=== PATIENT | male | born 1980 | race Hispanic/Latino ===

== ENCOUNTER 2017-11-02 16:36 | Inpatient (IN) | payer MEDICAID, OTHER, SELFPAY ==
[2017-11-02 16:36] VITALS: BMI 25.8
--- NOTE | 2017-11-02 17:22 | ED PDOC ---
Arrival/HPI - General Chief Complaint: Psychiatric Evaluation Time Seen by Provider: 11/02/17 16:49 Historian: Patient - History of Present Illness Narrative History of Present Illness (Text): 11/02/17 17:18 36yr old male presents today with depression and SI. pt states he started using drugs again and his girlfriend left him. pt states today he considered jumping in front of a train. pt admits to using heroin this morning. pt denies attempting to overdose on any medications. pt denies fever/chills. no cough. no CP or sob. pt denies abdominal pain. pt states he has started cutting himself again. No other complaints. Symptom Onset: Gradual Symptom Course: Worsening Past Medical History - Provider Review Nursing Documentation Reviewed: Yes - Travel History Have you recently traveled outside [place] w/in the past 3 mons?: No - Infectious Disease Hx of Infectious Diseases: None - Tetanus Immunization Tetanus Immunization: Unknown - Cardiac Hx Hypertension: Yes - Pulmonary Hx Asthma: Yes - Neurological Hx Alzheimer's Disease: No Hx Dementia: No Hx Migraine: No Hx Multiple Sclerosis: No Hx Parkinson's Disease: No Hx Seizures: No Hx Transient Ischemic Attacks (TIA): No - HEENT Hx HEENT Disorder: No Hx Cataracts: No Hx Deafness: No Hx Difficulty Chewing: No Hx Epistaxis: No Hx Glaucoma: No Hx Macular Degeneration: No - Renal Hx Renal Disorder: No Hx Kidney Stones: No - Endocrine/Metabolic Hx Hyperthyroidism: No Hx Hypothyroidism: No - Hematological/Oncological Hx Anemia: No Hx Sickle Cell Disease: No - Integumentary Hx Dermatological Disorder: No Hx Basal Cell Carcinoma: No Hx Baxter: No Hx Cellulitis: No Hx Eczema: No Hx Melanoma: No Hx Psoriasis: No Hx Squamous Cell Carcinoma: No - Musculoskeletal/Rheumatological Hx Arthritis: Yes - Gastrointestinal Hx Crohn's Disease: No Hx Diverticulitis: No Hx Gall Bladder Disease: No Hx Gastritis: No Hx Pancreatitis: No - Genitourinary/Gynecological Hx Sexually Transmitted Diseases: No - Psychiatric Hx Anxiety: Yes Hx Depression: Yes Hx Post Traumatic Stress Disorder: Yes Hx Substance Use: Yes - Past Surgical History Past Surgical History: Non-Contributing - Surgical History Hx Appendectomy: No Hx Carotid Endarterectomy: No Hx Cholecystectomy: No Hx Coronary Artery Bypass Graft: No Hx Coronary Stent: No Hx Tonsillectomy: No - Anesthesia Hx Anesthesia: No - Suicidal Assessment Feels Threatened In Home Enviroment: No Family/Social History - Physician Review Nursing Documentation Reviewed: Yes Family/Social History: Unknown Family HX Smoking Status: Heavy Smoker > 10 Cigarettes Daily Hx Alcohol Use: Yes Hx Substance Use: Yes Substance used: will not admit to type of drug Hx Substance Use Treatment: Yes Allergies/Home Meds Allergies/Adverse Reactions: Allergies No Known Allergies Allergy (Verified 12/25/16 02:41) Home Medications: Home Meds Medication Instructions Recorded Confirmed Amphetamine Salt Combination 10 mg PO DAILY 12/25/16 12/25/16 [Adderall] clonazePAM [clonAZEPAM] 1 mg PO TID 12/25/16 12/25/16 Review of Systems - Review of Systems Constitutional: absent: Fatigue, Fevers Respiratory: absent: SOB, Cough Cardiovascular: absent: Chest Pain, Palpitations Gastrointestinal: absent: Abdominal Pain, Nausea, Vomiting Musculoskeletal: absent: Arthralgias, Back Pain, Neck Pain Neurological: absent: Headache, Dizziness Psychiatric: Anxiety, Depression, Suicidal Ideation Physical Exam Vital Signs Reviewed: Yes Vital Signs Temp Pulse Resp BP Pulse Ox 11/02/17 18:30 68 20 117/62 99 11/02/17 16:44 98.6 F 82 16 118/80 99 Temperature: Afebrile Blood Pressure: Normal Pulse: Regular Respiratory Rate: Normal Appearance: Positive for: Well-Appearing, Non-Toxic, Comfortable Pain Distress: None Mental Status: Positive for: Alert and Oriented X 3 - Systems Exam Head: Present: Atraumatic Mouth: Present: Moist Mucous Membranes Respiratory/Chest: Present: Clear to Auscultation Cardiovascular: Present: Regular Rate and Rhythm Abdomen: No: Tenderness, Rebound, Guarding Upper Extremity: Present: Normal ROM Lower Extremity: Present: Normal ROM Neurological: Present: GCS=15 Skin: Present: Warm, Dry, Normal Color Psychiatric: Present: Alert, Oriented x 3 Medical Decision Making ED Course and Treatment: 11/02/17 18:53 Patient is nontoxic well-appearing in no distress vital signs are stable. pt placed on 1:1 for SI. pt became agitated in er; pt given 2mg of ativan IM. CBC WNL CMP WNL Tylenol WNL Salicylate WNL Alcohol level WNL Urine drug screen + opiates, + amphetamines UA; wnl cxr: wnl ekg: Normal sinus rhythm at 76 bpm normal axis no ST elevations normal intervals pt is medically cleared for PES evaluation Patient was seen and evaluated by PES screener pt signed voluntarily to behavioral [facility] floor. Impression; depression, SI Admit to behavioral [facility] floor - Lab Interpretations Lab Results: 11/02/17 17:34 11/02/17 17:34 Lab Results 11/02/17 17:34: Alcohol, Quantitative < 10 11/02/17 17:34: Salicylates < 1 L, Acetaminophen < 10.0 L 11/02/17 17:34: Sodium 143, Potassium 3.6, Chloride 103, Carbon Dioxide 28, Anion Gap 16, BUN 16, Creatinine 0.8, Est GFR ( Amer) > 60, Est GFR (Non- Af Amer) > 60, Random Glucose 110, Calcium 9.2, Total Bilirubin 0.8, AST 51, ALT 86 H, Alkaline Phosphatase 73, Total Protein 7.5, Albumin 4.0, Globulin 3.5 , Albumin/Globulin Ratio 1.1 11/02/17 17:34: WBC 4.5, RBC 4.72, Hgb 13.9 L, Hct 38.6 L, MCV 81.8, MCH 29.4, MCHC 36.0, RDW 13.3, Plt Count 197, MPV 9.0, Gran % 53.4, Lymph % (Auto) 36.1 H , Steele % (Auto) 9.4 H, Eos % (Auto) 0.7 L, Baso % (Auto) 0.4, Gran # 2.40, Lymph # (Auto) 1.6, Steele # (Auto) 0.4, Eos # (Auto) 0.0, Baso # (Auto) 0.02 - RAD Interpretation Radiology Orders: 11/02/17 16:54 CHEST PORTABLE [RAD] Stat - Medication Orders Current Medication Orders: Acetaminophen (Tylenol 325mg Tab) 650 mg PO Q6H PRN PRN Reason: Fever >100.4 F Discontinued Medications Lorazepam (Ativan) 2 mg IM ONCE ONE PRN Reason: Protocol Stop: 11/02/17 17:23 Last Admin: 11/02/17 17:32 Dose: 2 mg IM Administration Charges Document 11/02/17 17:32 DAINA (Rec: 11/02/17 17:32 SZA [id number]) Injection Site MAR Injection Site Left Deltoid Charges for Administration # of IM Administrations 1 Disposition/Present on Arrival - Present on Arrival Any Indicators Present on Arrival: No History of DVT/PE: No History of Uncontrolled Diabetes: No Urinary Catheter: No History of Decub. Ulcer: No History Surgical Site Infection Following: None - Disposition Have Diagnosis and Disposition been Completed?: Yes Diagnosis: Depression, Suicidal ideation Disposition: HOSPITALIZED Disposition Time: 19:00 Patient Plan: Admission Patient Problems: Current Active Problems Problem Status Onset Depression Acute Suicidal ideation Acute Condition: FAIR
--- NOTE | 2017-11-02 17:27 | RAD ---
HISTORY: pes eval COMPARISON: No prior. FINDINGS: LUNGS: No active pulmonary disease. PLEURA: No significant pleural effusion identified, no pneumothorax apparent. CARDIOVASCULAR: Normal. OSSEOUS STRUCTURES: No significant abnormalities. VISUALIZED UPPER ABDOMEN: Normal. OTHER FINDINGS: None. IMPRESSION: No active disease.
[2017-11-02 17:49] LABS: BASO # 0.02 K/mm3 (0.0-2.0); BASO % 0.4 % (0.0-3.0); EOS % 0.7 % (1.5-5.0); GRAN # 2.4 (1.4-6.5); GRAN % 53.4 % (50.0-68.0); HEMOGLOBIN 13.9 g/dL (14.0-18.0); LYMPH # 1.6 (1.2-3.4); LYMPH % 36.1 % (22.0-35.0); MEAN CELL VOLUME 81.8 fl (80.0-105.0); MEAN CORPUSCULAR HEMOGLOBIN 29.4 pg (25.0-35.0); MONO # 0.4 (0.1-0.6); MONO % 9.4 % (1.0-6.0); RBC 4.72 10^6/uL (3.5-6.1); RED CELL DISTRIBUTION WIDTH 13.3 % (11.5-14.5); WHITE BLOOD COUNT 4.5 10^3/ul (4.5-11.0)
[2017-11-02 18:01] LABS: ACETAMINOPHEN < 10.0 ug/ml (10.0-20.0); SALICYLATE < 1 mg/dL (2.0-20.0)
[2017-11-02 18:02] LABS: ALB/GLOB RATIO 1.1 (1.1-1.8); ALT/SGPT 86 U/L (7-56); AST/SGOT 51 U/L (17-59); BLOOD UREA NITROGEN 16 mg/dL (7-21); CALCIUM 9.2 mg/dL (8.4-10.5); GFR AFRICAN-AMERICAN > 60; GFR NON-AFRICAN AMERICAN > 60
[2017-11-02 19:48] LABS: URINE BILIRUBIN NEGATIVE (NEGATIVE); URINE BLOOD NEGATIVE (NEGATIVE); URINE GLUCOSE (UA) NEGATIVE (NEGATIVE); URINE LEUKOCYTE ESTERASE NEGATIVE Leu/uL (NEGATIVE); URINE PROTEIN TRACE mg/dL (<30 mg/dL)
[2017-11-02 19:53] LABS: URINE APPEARANCE CLEAR (CLEAR); URINE COLOR YELLOW (YELLOW)
[2017-11-02 20:00] LABS: URINE EPITHELIAL CELLS 0 - 2 /hpf (0-5); URINE RBC 0 - 2 /hpf (0-2); URINE WBC 0 - 2 /hpf (0-6)
[2017-11-02] MEDS ORDERED: Magnesium Hydroxide Susp 30 ml UD PO PRN (20:20)
[2017-11-02] MEDS ORDERED: Alum-Mag Hydrox-Simethicone Susp (30 mL) PO PRN (20:20)
[2017-11-02 20:21] LABS: BARBITURATES, UR NEGATIVE (NEGATIVE); OPIATES, UR POSITIVE (NEGATIVE); PHENCYCLIDINE, UR NEGATIVE (NEGATIVE)
[2017-11-02 20:56] VITALS: O2SAT 100
--- NOTE | 2017-11-03 05:46 | PCM.BM ---
<Anupam Witt - Last Filed: 11/03/17 05:44> Treatment Plan Problems - Problems identified on initial assessmt suicidal ideation Date Initiated: 11/01/17 Time Initiated: 21:45 Assessment reference: NA Status: Active Substance abuse Date Initiated: 11/02/17 Time Initiated: 22:45 Assessment reference: NA Status: Active Treatment assets and liabiliti Patient Assests: ADL independent, good past tx response, good interpersonal skills Patient Liabilities: financial problems, poor support system, relationship conflicts, substance abuse, legal issue - Milieu Protocol Maintain good personal hygiene: daily Encourage regular showers, daily Remind patient to perform daily oral care, daily Assist patient to perform ADL's Conduct patient checks and document Observation sheet: Q15 minutes Maintain personal safety: daily Educate patient to report safety concerns to staff, daily Monitor environment for contraband/sharps Medication safety: Monitor for expected outcome, potential side effects: daily, Assess barriers to learning: daily, Assess readiness for medication education: daily Family Contact Family involvement: Patient does not wish Family/SO involvement Family contact: Patient declines to allow family contact at present Discharge/Continuing Care - Education Needs Education Needs: Patient Medication, Patient Diagnosis/Disease Process, Patient Coping Skills - Discharge Discharge Criteria: Tolerates medication w/o severe side effects, Free of Suicidal thoughts <Yanelis So - Last Filed: 11/03/17 13:28> Family Contact - Goals for Treatment Patient goals for treatment: Unknown, patient refused to participate in Treatment Team Meeting. <Deedee Concepcion - Last Filed: 11/03/17 15:03> - Diagnosis (1) Polysubstance abuse Status: Acute Interventions: 11/03/17 15:04 Monitoring withdrawal symptoms Medical detoxification Pharmacotherapy for alcohol/benzos/opioid dependence Maintaining sobriety Relapse prevention Possible rehabilitation Motivational interviewing 12-step programs: AA meetings (2) Depression Status: Acute Interventions: 11/03/17 15:09 Psychoeducation Psychopharmacology/adjustment of medications as needed/ monitoring possible side effects Evaluate pt on daily basis Compliance with medications and follow up appointments Suicide and homicide risk assessment and prevention Relapse prevention Reduction of symptoms Improve functional status Family involvement As outpatient: cognitive behavioral therapy <Odette Negrete - Last Filed: 11/03/17 15:18>
[2017-11-03 08:07] LABS: GLUCOSE,FASTING 86 mg/dL (65-110); HDL CHOLESTEROL 33 mg/dL (29-60)
[2017-11-03 08:22] LABS: LDL CHOLESTEROL 126 mg/dL (0-129)
[2017-11-03 11:20] LABS: BENZODIAZEPINES, UR POSITIVE (NEGATIVE)
--- NOTE | 2017-11-03 14:59 | PCM.PSYCH ---
Initial Psychiatric Evaluation - Initial Psychiatric Evaluation Type of Admission: Voluntary Legal Status: Capacity (pt has a capacity to sign consent for treatment) Chief Complaint (in patient's own words): "I don't feel well" Patient's Reaction to Hospitalization: pt was admitted for evaluation of depression/possible suicidal ideation History of Present Illness and Precipitating Events: shortly pt is 36yo male with reported h/o polysubstance abuse and dependence, h/ o multiple detoxes, h/o psych admissions, most recent was at [facility] in 2016, pt brought himself to the hospital for evaluation of depressive symptoms, possible suicidal ideation with the plan to jump in front of the train, in context of constant use drugs, social stress such losing his job and recent brake up with his girlfriend. pt reported that he had a plan to jump in front of the train, pt requires further evaluation and stabilization, observation. pt was seen in his room, pt presented to be drowsy, refused to participate in treatment team meeting, acceptable ADLs, poor hygiene. pt seems to be disengaged, talking with his eyes closed, pt said he was using about 15bags of heroin a day IV, and at this moment he is withdrawing. pt said he is not using anything else, but as per labs, UDS was positive for benzos, stimulants. pt is poor and unreliable historian, did not want to participate in interview. as per report pt was depressed after his girlfriend left him and he lost his job. long h/o opioid addiction for 20years. as per report pt has h/o using alcohol, benzos, stimulants. pt has some fresh cuts on his forearm, aproximately 25-30, on the dorsal aspect , pt said that he did not try to kill self, but wanted to harm self. pt said he had no h/o admissions to the psych unit, but as per record pt was admitted to psych unit and detox units in 2016 and 2014. pt denies any medical issues, but pt is bradycardic, low blood pressure. Family h/o: unknown Social h/o: see above. pt smokes about a pack a day, pt was not receptive to education, nicotine patch provided. pt denied v/at/ hallucinations, denied paranoid ideation. as per previous record pt was agitated and aggressive in [facility] in 2017, punched the wall, was d/c AMA. 11/02/17 17:34 11/02/17 17:34 Lab Results 11/03/17 07:00: TSH 3rd Generation 0.68 11/03/17 07:00: Fasting Glucose 86, Triglycerides 180 H, Cholesterol 206 H, LDL Cholesterol Direct 126, HDL Cholesterol 33 11/02/17 19:35: Urine Opiates Screen Positive H, Urine Methadone Screen Negative , Ur Barbiturates Screen Negative, Ur Phencyclidine Scrn Negative, Ur Amphetamines Screen Positive H, U Benzodiazepines Scrn Positive, U Oth Cocaine Metabols Negative, U Cannabinoids Screen Negative 11/02/17 19:35: Urine Color Yellow, Urine Appearance Clear, Urine pH 6.0, Ur Specific Sprague >= 1.030, Urine Protein Trace H, Urine Glucose (UA) Negative, Urine Ketones Trace H, Urine Blood Negative, Urine Nitrate Negative, Urine Bilirubin Negative, Urine Urobilinogen 1.0 H, Ur Leukocyte Esterase Negative, Urine RBC 0 - 2, Urine WBC 0 - 2, Ur Epithelial Cells 0 - 2 11/02/17 17:34: Alcohol, Quantitative < 10 11/02/17 17:34: Salicylates < 1 L, Acetaminophen < 10.0 L 11/02/17 17:34: Sodium 143, Potassium 3.6, Chloride 103, Carbon Dioxide 28, Anion Gap 16, BUN 16, Creatinine 0.8, Est GFR ( Amer) > 60, Est GFR (Non- Af Amer) > 60, Random Glucose 110, Calcium 9.2, Total Bilirubin 0.8, AST 51, ALT 86 H, Alkaline Phosphatase 73, Total Protein 7.5, Albumin 4.0, Globulin 3.5 , Albumin/Globulin Ratio 1.1 11/02/17 17:34: WBC 4.5, RBC 4.72, Hgb 13.9 L, Hct 38.6 L, MCV 81.8, MCH 29.4, MCHC 36.0, RDW 13.3, Plt Count 197, MPV 9.0, Gran % 53.4, Lymph % (Auto) 36.1 H , Thomas % (Auto) 9.4 H, Eos % (Auto) 0.7 L, Baso % (Auto) 0.4, Gran # 2.40, Lymph # (Auto) 1.6, Thomas # (Auto) 0.4, Eos # (Auto) 0.0, Baso # (Auto) 0.02 Vital Signs Temp Pulse Resp BP Pulse Ox 11/03/17 13:45 97.6 F 49 L 17 109/69 11/03/17 10:45 97.5 F L 60 18 109/60 11/03/17 09:45 -97.5 F L 60 18 100/60 11/03/17 09:15 97.6 F 53 L 16 95/55 L 11/02/17 22:31 19 11/02/17 20:54 98.2 F 62 18 112/61 100 11/02/17 18:30 68 20 117/62 99 11/02/17 16:44 98.6 F 82 16 118/80 99 Current Medications: Active Medications Generic Name Dose Route Start Last Admin Trade Name Freq PRN Reason Stop Dose Admin Acetaminophen 650 mg 11/02/17 20:20 Tylenol 325mg Tab PO Q6H PRN Fever >100.4 F Al Hydrox/Mg Hydrox/Simethicone 30 ml 11/02/17 20:20 Maalox Plus 30 Ml PO DAILY PRN Dyspepsia Clonidine HCl 0.1 mg 11/02/17 20:21 Catapres PO Q12 PRN withdrawal Lorazepam 1 mg 11/03/17 08:00 11/03/17 09:35 Ativan PO 1 mg TID NAYELI Administration Protocol Magnesium Hydroxide 30 ml 11/02/17 20:20 Milk Of Magnesia PO DAILY PRN Constipation Quetiapine Fumarate 50 mg 11/02/17 22:00 11/02/17 21:32 Seroquel PO 50 mg HS NAYELI Administration Protocol Quetiapine Fumarate 25 mg 11/03/17 08:00 Seroquel PO DAILY NAYELI Protocol Past Psychiatric History - Past Psychiatric History Previous Treatment History: Inpatient Prior Professional Help: see HPI Prior Psychiatric Treatment: see HPI At what hospital: see HPI Duration: see HPI Nature of Treatment: see HPI Explanation of prior treatment: see HPI History of Abuse: see HPI History of ETOH/Drug Use: see HPI History of Family Illness: see HPI Pertinent Medical Hx (Current Medical&Sleep Prob, Allergies): Allergies Allergy/AdvReac Type Severity Reaction Status Date / Time No Known Allergies Allergy Verified 11/03/17 00:08 Amphetamine Salt Combination [Adderall] 10 mg PO DAILY 12/25/16 clonazePAM [clonAZEPAM] 1 mg PO TID 12/25/16 Review of Systems - Review of Systems Systems not reviewed;Unavailable: Acuity of Condition - EENT Eyes: As Per HPI Ears: As Per HPI Nose/Mouth/Throat: As Per HPI - Cardiovascular Cardiovascular: As Per HPI - Respiratory Respiratory: As Per HPI - Gastrointestinal Gastrointestinal: As Per HPI - Genitourinary Genitourinary: As Per HPI - Reproductive: Male Reproductive:Male: As Per HPI - Musculoskeletal Musculoskeletal: As Par HPI - Integumentary Integumentary: As Per HPI - Neurological Neurological: As Per HPI - Psychiatric Psychiatric: As Per HPI - Endocrine Endocrine: As Per HPI - Hematologic/Lymphatic Hematologic: As Per HPI Mental Status Examination - Personal Presentation Personal Presentation: Looks stated age - Affect Affect: Flat - Motor Activity Motor Activity: Psychomotor Retardation - Reliability in Providing Information Reliability in Providing Information: Poor, due to alteration in thoughts, Poor , due to altered mood, Poor, due to cognitve impairment, Other (seems to be high on drugs) - Speech Speech: Disorganized - Mood Mood: Depressed, Anxious - Formal Thought Process Formal Thought Process: No Impairment - Obsessions/Compulsions Obsessions: None Compulsions: None - Cognitive Functions Orientation: Person, Place Sensorium: Drowsy Attention/Concentration: Easily distracted Estimate of Intelligence: Average Judgement: Intact, as evidence by: Insight regarding need for hospitalization - Risk Risk: Withdrawal, Self-mutilation, Diminished functioning - Strength & Assets Inventory Strength & Assets Inventory: Cooperative - Limitations Limitations: Living alone, Other (multiple social stressors and polysubstance abuse for years) DSM 5 DX - DSM 5 DSM 5 Diagnosis: r/o MDD r/o substance induced mood disorder polysubstance dependence adjustment disorder with depressed and anxious mood - Recommended/Plan of Treatment Treatment Recommendations and Plan of Treatment: Milieu/structure/supportive therapy Medical consult will be called for withdrawals will start symptomatic treatment for opioid withdrawals librium 25mg po tid scheduled for benzos withdrawals seroquel started by psychiatrist environmental permitting specialist remeron 15mg po hs for depression and insomnia neurontin tramadol PRN meds multivitamies SW consultation for discharge plan and social issues Med management Family involvement Follow up on labs Will monitor closely Pt was educated about risk/benefits and alternatives of medications, coping strategies (safety plan, suicide prevention), relapse prevention, importance of follow up with psychiatrist and therapist, stay away from drugs/alcohol/smoking Projected ELOS: 7days Prognosis: guarded Discharge Plan and Discharge Criteria: Pt will be not depressed or manic, will be more hopeful, will be not psychotic or anxious, will be not having thoughts of harming self or others, will be tolerating medications well, will not have major side effects, will be able to function, will not pose threat to self or others. - Smoking Cessation Smoking Cessation Initiated: Yes
--- NOTE | 2017-11-03 18:01 | CARD ---
APPROVED REPORT EKG Measurement Heart [id number] <Conclusion> Poor data quality, interpretation may be adversely affected Normal sinus rhythm Inferior infarct, age undetermined Abnormal ECG
--- NOTE | 2017-11-04 08:06 | CARD ---
APPROVED REPORT EKG Measurement Heart [id number] <Conclusion> Marked sinus bradycardia Inferior infarct, age undetermined Abnormal ECG
[2017-11-04 08:44] LABS: FREE T4 1.16 ng/dL (0.78-2.19)
--- NOTE | 2017-11-04 08:51 | CP.PCM.CON ---
<Tish Mistry - Last Filed: 11/04/17 13:56> History of Present Illness - History of Present Illness History of Present Illness: IM consult note for Dr. Nathaniel Mistry, PGY-1 Pt S & E at bedside at 0720 36M w/PMH sig for depression, arthritis, anxiety, Hep C consulted for bradycardia in setting of opiate abuse. Pt reports he is currently going through withdrawal symptoms- last heroin use 2 days ago. Admits to rhinorrhea, insomnia, agitation, diffuse body aches, sweating, nausea, emesis x 1 (nb, bilious), constipation, chills, headache, dizziness, vision changes, sore throat , weakness, palpitations. Denies numbness & tingling of extremities, changes in urinary habits. UDS positive for opiates & amphetamins, EKG w/marked sinus sarah. RPR neg. Free T4 WNL. PMH: Depression, SI, arthritis, anxiety, Hep C PSH: Denies All: NKDA SH: Admits to tobacco use - 1ppd x 20 yrs, denies ETOH use, admits to heroin and xanax abuse FH: HTN PMD: Denies Review of Systems - Review of Systems All systems: reviewed and no additional remarkable complaints except - Constitutional Constitutional: Anorexia, Chills, Excessive Sweating, Fever, Headache, Lethargy , Weakness. absent: Increased Appetite - EENT Eyes: Blurred Vision Ears: Dizziness Nose/Mouth/Throat: Nasal Discharge, Sore Throat - Cardiovascular Cardiovascular: Chest Pain, Palpitations. absent: Leg Edema - Respiratory Respiratory: absent: Cough - Gastrointestinal Gastrointestinal: Change in Stool Character, Constipation, Nausea, Vomiting. absent: Abdominal Pain, Diarrhea, Hematemesis, Hematochezia - Genitourinary Genitourinary: absent: Change in Urinary Stream, Dysuria - Musculoskeletal Musculoskeletal: Muscle Weakness. absent: Numbness, Tingling - Integumentary Integumentary: absent: New Lesions - Neurological Neurological: Dizziness - Psychiatric Psychiatric: Change in Appetite, Depression, Hopelessness, Suicidal Ideation - Endocrine Endocrine: Excessive Sweating Past Patient History - Infectious Disease Hx of Infectious Diseases: None - Tetanus Immunizations Tetanus Immunization: Unknown - Past Medical History & Family History Past Medical History?: Yes - Past Social History Smoking Status: Heavy Smoker > 10 Cigarettes Daily - CARDIAC Hx Hypertension: Yes - PULMONARY Hx Asthma: Yes - NEUROLOGICAL Hx Alzheimer's Disease: No Hx Dementia: No Hx Migraine: No Hx Multiple Sclerosis: No Hx Parkinson's Disease: No Hx Seizures: No Hx Transient Ischemic Attacks (TIA): No - HEENT Hx HEENT Problems: No Hx Cataracts: No Hx Deafness: No Hx Difficulty Chewing: No Hx Epistaxis: No Hx Glaucoma: No Hx Macular Degeneration: No - RENAL Hx Chronic Kidney Disease: No Hx Kidney Stones: No - ENDOCRINE/METABOLIC Hx Hyperthyroidism: No Hx Hypothyroidism: No - HEMATOLOGICAL/ONCOLOGICAL Hx Anemia: No Hx Sickle Cell Disease: No - INTEGUMENTARY Hx Dermatological Problems: No Hx Basil Cell: No Hx Baxter: No Hx Cellulitis: No Hx Eczema: No Hx Melanoma: No Hx Psoriasis: No Hx Squamous Cell: No - MUSCULOSKELETAL/RHEUMATOLOGICAL Hx Arthritis: Yes - GASTROINTESTINAL Hx Crohn's Disease: No Hx Diverticulitis: No Hx Gall Bladder Disease: No Hx Gastritis: No Hx Pancreatitis: No - GENITOURINARY/GYNECOLOGICAL Hx Sexually Transmitted Disorders: No - PSYCHIATRIC Hx Substance Use: Yes - SURGICAL HISTORY Hx Appendectomy: No Hx Carotid Endarterectomy: No Hx Cholecystectomy: No Hx Coronary Artery Bypass Graft: No Hx Coronary Stent: No Hx Tonsillectomy: No - ANESTHESIA Hx Anesthesia: No Meds Allergies/Adverse Reactions: Allergies Allergy/AdvReac Type Severity Reaction Status Date / Time No Known Allergies Allergy Verified 11/03/17 00:08 - Medications Medications: Current Medications Acetaminophen (Tylenol 325mg Tab) 650 mg PO Q6H PRN PRN Reason: Fever >100.4 F Al Hydrox/Mg Hydrox/Simethicone (Maalox Plus 30 Ml) 30 ml PO DAILY PRN PRN Reason: Dyspepsia Chlordiazepoxide (Librium) 25 mg PO Q8 NAYELI PRN Reason: Protocol Last Admin: 11/04/17 06:08 Dose: Not Given Clonidine HCl (Catapres) 0.1 mg PO Q12 PRN PRN Reason: withdrawal Gabapentin (Neurontin) 300 mg PO TID NAYELI PRN Reason: Protocol Last Admin: 11/03/17 18:11 Dose: 300 mg Lorazepam (Ativan) 2 mg PO QID PRN; Protocol PRN Reason: anxiety/agitation Last Admin: 11/04/17 06:08 Dose: 2 mg Magnesium Hydroxide (Milk Of Magnesia) 30 ml PO DAILY PRN PRN Reason: Constipation Mirtazapine (Remeron) 15 mg PO HS [facility] Last Admin: 11/03/17 21:40 Dose: 15 mg Multivitamins/Minerals (Therapeutic-M Tab) 1 tab PO 0800 [facility] Nicotine (Nicoderm Cq) 1 patch TD DAILY [facility] Ondansetron HCl (Zofran Odt) 4 mg PO Q8H PRN PRN Reason: Nausea/Vomiting Last Admin: 11/03/17 12:26 Dose: 4 mg Quetiapine Fumarate (Seroquel) 50 mg PO HS [facility] PRN Reason: Protocol Last Admin: 11/03/17 21:40 Dose: 50 mg Quetiapine Fumarate (Seroquel) 25 mg PO DAILY [facility] PRN Reason: Protocol Last Admin: 11/03/17 11:30 Dose: Not Given Tramadol HCl (Ultram) 50 mg PO TID [facility] Last Admin: 11/03/17 18:11 Dose: 50 mg Ziprasidone (Geodon Cap) 20 mg PO Q6H PRN; Protocol PRN Reason: agitation/aggression Physical Exam - Constitutional Appears: Non-toxic, No Acute Distress - Head Exam Head Exam: ATRAUMATIC, NORMAL INSPECTION, NORMOCEPHALIC - Eye Exam Eye Exam: EOMI, Normal appearance - ENT Exam ENT Exam: Mucous Membranes Moist, Normal Exam - Neck Exam Neck exam: Positive for: Full Rom, Normal Inspection - Respiratory Exam Respiratory Exam: Clear to Auscultation Bilateral, NORMAL BREATHING PATTERN. absent: Wheezes, Respiratory Distress - Cardiovascular Exam Cardiovascular Exam: REGULAR RHYTHM, +S1, +S2 - GI/Abdominal Exam GI & Abdominal Exam: Hyperactive Bowel Sounds, Soft. absent: Distended, Firm, Guarding, Tenderness - Extremities Exam Extremities exam: Positive for: normal inspection. Negative for: pedal edema - Back Exam Back exam: NORMAL INSPECTION. absent: CVA tenderness (L), CVA tenderness (R) - Neurological Exam Neurological exam: Alert, CN II-XII Intact, Oriented x3 - Psychiatric Exam Psychiatric exam: Normal Affect, Normal Mood - Skin Skin Exam: Dry, Intact, Normal Color, Warm Additional comments: multiple tattoos over upper body Results - Vital Signs Recent Vital Signs: Last Vital Signs Temp 97.9 F 11/04/17 06:56 Pulse 51 L 11/04/17 06:56 Resp 22 11/04/17 06:56 BP 100/51 L 11/04/17 06:56 Pulse Ox 100 11/03/17 23:30 - Labs Result Diagrams: 11/02/17 17:34 11/02/17 17:34 Labs: Laboratory Results - last 24 hr 11/02/17 11/03/17 11/03/17 19:35 07:00 07:00 Free T4 TSH 3rd Generation 0.68 U Benzodiazepines Scrn Positive RPR Nonreactive 11/03/17 11/04/17 19:00 08:00 Free T4 1.16 TSH 3rd Generation 0.24 L U Benzodiazepines Scrn RPR Assessment & Plan - Assessment and Plan (Free Text) Assessment: 36M w/PMH sig for SI, depression consulted for bradycardia in setting of opiate abuse Plan: Bradycardia in 40's EKG w/sinus bradycardia w/inferior infarct of indet age- seen on previous EKGs FU echo FT4 1.16- WNL TSH 0.16 from 0.24- low Cards consulted Constipation On MagOx Miralax PRN Colace Monitor Hep C in setting of IVDU FU HIV RPR neg Encouraged to follow up outpatient for Hep C upon discharge Tobacco abuse Already on Nicotine patch Substance abuse as per psych Librium Ativan Seroquel Geodon Remeron Clonidine Zofran Monitor GI/DVT ppx Ambulate Will follow DW attending Fidelia, PGY-1 - Date & Time Date: 11/04/17 Time: 07:20 <Monse Yee - Last Filed: 11/04/17 15:05> Meds - Medications Medications: Current Medications Acetaminophen (Tylenol 325mg Tab) 650 mg PO Q6H PRN PRN Reason: Fever >100.4 F Al Hydrox/Mg Hydrox/Simethicone (Maalox Plus 30 Ml) 30 ml PO DAILY PRN PRN Reason: Dyspepsia Clonidine HCl (Catapres) 0.1 mg PO Q12 PRN PRN Reason: withdrawal Gabapentin (Neurontin) 300 mg PO TID NAYELI PRN Reason: Protocol Last Admin: 11/04/17 14:37 Dose: Not Given Lorazepam (Ativan) 2 mg PO QID PRN; Protocol PRN Reason: anxiety/agitation Last Admin: 11/04/17 06:08 Dose: 2 mg Lorazepam (Ativan) 3 mg PO QID NAYELI PRN Reason: Protocol Last Admin: 11/04/17 14:36 Dose: Not Given Magnesium Hydroxide (Milk Of Magnesia) 30 ml PO DAILY PRN PRN Reason: Constipation Mirtazapine (Remeron) 15 mg PO HS [facility] Last Admin: 11/03/17 21:40 Dose: 15 mg Multivitamins/Minerals (Therapeutic-M Tab) 1 tab PO 0800 [facility] Last Admin: 11/04/17 09:36 Dose: 1 tab Nicotine (Nicoderm Cq) 1 patch TD DAILY [facility] Last Admin: 11/04/17 09:36 Dose: 1 patch Ondansetron HCl (Zofran Odt) 4 mg PO Q8H PRN PRN Reason: Nausea/Vomiting Last Admin: 11/03/17 12:26 Dose: 4 mg Polyethylene Glycol (Miralax) 17 gm PO DAILY PRN PRN Reason: Constipation Quetiapine Fumarate (Seroquel) 50 mg PO HS [facility] PRN Reason: Protocol Last Admin: 11/03/17 21:40 Dose: 50 mg Quetiapine Fumarate (Seroquel) 25 mg PO DAILY [facility] PRN Reason: Protocol Last Admin: 11/04/17 09:35 Dose: 25 mg Tramadol HCl (Ultram) 50 mg PO TID [facility] Last Admin: 11/04/17 14:37 Dose: Not Given Ziprasidone (Geodon Cap) 20 mg PO Q6H PRN; Protocol PRN Reason: agitation/aggression Results - Vital Signs Recent Vital Signs: Last Vital Signs Temp 97.9 F 11/04/17 06:56 Pulse 51 L 11/04/17 06:56 Resp 22 11/04/17 06:56 BP 100/51 L 11/04/17 06:56 Pulse Ox 100 11/03/17 23:30 - Labs Result Diagrams: 11/02/17 17:34 11/02/17 17:34 Labs: Laboratory Results - last 24 hr 11/03/17 11/03/17 11/04/17 07:00 19:00 08:00 Free T4 1.16 TSH 3rd Generation 0.24 L 0.16 L RPR Nonreactive Attending/Attestation - Attestation I have personally seen and examined this patient.: Yes I have fully participated in the care of the patient.: Yes I have reviewed all pertinent clinical information: Yes Notes (Text): I have seen and examined the patient at bedside. Agree with the above note with the following additions/ exceptions: Briefly this is 36 year old male with history of depression, arthritis, anxiety, known and untreated HepC, tobacco use , IVDA heroin use, benzodiazepines over use who was admitted to psych unit for depression, suicidal ideation and is going thru alcohol withdrawal syndrome. We were consulted for bradycardia. Patient does not have chest pain, sob, dizziness or any other complaints. Will order TSH and echocardiogram. Will consult cardio. Patient is on geodon which can cause bradycardia. Avoid beta blockers, clonidine, amiodarone and non dihyropyridine CCB. Patient is hemodynamically stable at this time. He had bradycardia in past admissions as well. Will continue to follow this patient.
[2017-11-04] MEDS: Multivitamin With Minerals Tab PO SCH (09:36)
[2017-11-04] MEDS ORDERED: POLYETHYLENE GLYCOL 3350 17 GM/Dose PACKET PO PRN (10:25)
--- NOTE | 2017-11-04 12:54 | CARD ---
APPROVED REPORT EXAM: Two-dimensional and M-mode echocardiogram with Doppler and color Doppler. INDICATION LVFX 2D DIMENSIONS Left Atrium (2D)3.9 (1.6-4.0cm)IVSd1.0 (0.7-1.1cm) LVDd5.3 (3.9-5.9cm)PWd1.1 (0.7-1.1cm) LVDs3.9 (2.5-4.0cm)FS (%) 26.2 % LVEF (%)51.1 (>50%) M-Mode DIMENSIONS Aortic Root3.30 (2.2-3.7cm)Aortic Cusp Exc.1.90 (1.5-2.0cm) Aortic Valve AoV Peak Htaqopgk580.0cm/Nimesh Peak GR.9mmHg Mitral Valve MV E Frjzfpvl68.7cm/sMV A Nnlkpoew33.1cm/sE/A ratio0.9 TDI Lateral E' Peak V11.90cm/sMedial E' Peak V7.51cm/sE/Lateral E'5.4 E/Medial E'8.6 Pulmonary Valve PV Peak Qkwgdcry34.4cm/sPV Peak Grad.3mmHg Tricuspid Valve TR Peak Qogwjisq929sd/sRAP [id number] Peak Gr.11mmHg [id number] LEFT VENTRICLE The left ventricle is normal size. There is normal left ventricular wall thickness. The left ventricular function is normal. The left ventricular ejection fraction is within the normal range. There is normal LV segmental wall motion. Transmitral Doppler flow pattern is Grade III-reversible restrictive diastolic dysfunction. No left ventricle thrombus noted on this study. There is no ventricular septal defect visualized. There is no left ventricular aneurysm. There is no mass noted in the left ventricle. RIGHT VENTRICLE The right ventricle is normal size. There is normal right ventricular wall thickness. The right ventricular systolic function is normal. ATRIA The left atrium size is normal. The right atrium size is normal. The interatrial septum is intact with no evidence for an atrial septal defect. AORTIC VALVE The aortic valve is normal in structure. No aortic regurgitation is present. There is no aortic valvular stenosis. There is no aortic valvular vegetation. GREAT VESSELS The aortic root is normal in size. The ascending aorta is normal in size. The pulmonary artery is normal. The IVC is normal in size and collapses >50% with inspiration. PERICARDIAL EFFUSION There is no pleural effusion. There is no pericardial effusion. <Conclusion> Normal chambers Sizes.EF-55% Trace TR, RVSP-21 mmof hg. No vegetation /thrombus/ PE noted.
--- NOTE | 2017-11-04 16:32 | PCM.PYCHPN ---
Psychiatric Progress Note - Psychiatric Progress Note Patient seen today, length of contact: 30 minutes Patient Chief Complaint: "I cannot take Librium because it will damage my liver, I already have hepatitis C." Problems Identified/Issues Discussed: Suicide/ homicide prevention, past psychiatric h/o, current psychiatric symptoms , medical problems, risk/benefits and alternatives of medications, medications compliance, coping strategies, substance abuse h/o, relapse prevention, importance of follow up with psychiatrist and therapist, discharge plan. Medical Problems: as per patient he has hepatitis C, bradycardia, polysubstance abuse and dependence, opioid withdrawals under control, benzodiazepines with rules under control Diagnostic Results: 11/02/17 17:34 11/02/17 17:34 Lab Results 11/04/17 08:00: Free T4 1.16, TSH 3rd Generation 0.16 L 11/03/17 19:00: TSH 3rd Generation 0.24 L 11/03/17 07:00: RPR Nonreactive 11/03/17 07:00: TSH 3rd Generation 0.68 11/03/17 07:00: Fasting Glucose 86, Triglycerides 180 H, Cholesterol 206 H, LDL Cholesterol Direct 126, HDL Cholesterol 33 11/02/17 19:35: Urine Opiates Screen Positive H, Urine Methadone Screen Negative , Ur Barbiturates Screen Negative, Ur Phencyclidine Scrn Negative, Ur Amphetamines Screen Positive H, U Benzodiazepines Scrn Positive, U Oth Cocaine Metabols Negative, U Cannabinoids Screen Negative 11/02/17 19:35: Urine Color Yellow, Urine Appearance Clear, Urine pH 6.0, Ur Specific Echo >= 1.030, Urine Protein Trace H, Urine Glucose (UA) Negative, Urine Ketones Trace H, Urine Blood Negative, Urine Nitrate Negative, Urine Bilirubin Negative, Urine Urobilinogen 1.0 H, Ur Leukocyte Esterase Negative, Urine RBC 0 - 2, Urine WBC 0 - 2, Ur Epithelial Cells 0 - 2 11/02/17 17:34: Alcohol, Quantitative < 10 11/02/17 17:34: Salicylates < 1 L, Acetaminophen < 10.0 L 11/02/17 17:34: Sodium 143, Potassium 3.6, Chloride 103, Carbon Dioxide 28, Anion Gap 16, BUN 16, Creatinine 0.8, Est GFR ( Amer) > 60, Est GFR (Non- Af Amer) > 60, Random Glucose 110, Calcium 9.2, Total Bilirubin 0.8, AST 51, ALT 86 H, Alkaline Phosphatase 73, Total Protein 7.5, Albumin 4.0, Globulin 3.5 , Albumin/Globulin Ratio 1.1 11/02/17 17:34: WBC 4.5, RBC 4.72, Hgb 13.9 L, Hct 38.6 L, MCV 81.8, MCH 29.4, MCHC 36.0, RDW 13.3, Plt Count 197, MPV 9.0, Gran % 53.4, Lymph % (Auto) 36.1 H , [place] % (Auto) 9.4 H, Eos % (Auto) 0.7 L, Baso % (Auto) 0.4, Gran # 2.40, Lymph # (Auto) 1.6, [place] # (Auto) 0.4, Eos # (Auto) 0.0, Baso # (Auto) 0.02 Vital Signs Temp Pulse Resp BP Pulse Ox 11/04/17 06:56 97.9 F 51 L 22 100/51 L 11/03/17 23:30 61 20 127/75 100 11/03/17 21:40 98.7 F 46 L 20 96/56 L 100 11/03/17 16:00 46 L 106/63 11/03/17 13:45 97.6 F 49 L 17 109/69 11/03/17 10:45 97.5 F L 60 18 109/60 11/03/17 09:45 -97.5 F L 60 18 100/60 11/03/17 09:15 97.6 F 53 L 16 95/55 L 11/02/17 22:31 19 11/02/17 20:54 98.2 F 62 18 112/61 100 11/02/17 18:30 68 20 117/62 99 11/02/17 16:44 98.6 F 82 16 118/80 99 DSM 5 Symptoms Update: shortly pt is 36yo male with reported h/o polysubstance abuse and dependence, h/ o multiple detoxes, h/o psych admissions, most recent was at [facility] in 2016, pt brought himself to the hospital for evaluation of depressive symptoms, possible suicidal ideation with the plan to jump in front of the train, in context of constant use drugs, social stress such losing his job and recent brake up with his girlfriend. pt reported that he had a plan to jump in front of the train, pt requires further evaluation and stabilization, observation. pt was seen next to the nursing station, poor hygiene, pt is sweating, yawning. as per staff patient was able tohydrate himself, was refusing food majority of the times. Patient is self isolative, not participating in unit activities, refused to have echocardiogram but after education patient was willing to have this test for bradycardia. Patient refused to have Librium because patient said that he has hepatitis C and he is afraid that his liver will be damaged by that, this statement gave this production underwriter optimism that patient is not suicidal. patient appears to be depressed, irritable, annoyed. So far no behavioral incidents, tolerates medications well, no side effects observed or reported, aims 0, no EPS. DSM 5 Diagnosis: r/o MDD r/o substance induced mood disorder polysubstance dependence adjustment disorder with depressed and anxious mood Medication Change: Yes (Librium discontinuant, Ativan started) Medical Record Reviewed: Yes Consults ordered or reviewed: medical consult appreciated, medical team suggested cardiology consult for bradycardia Mental Status Examination - Cognitive Function Orientation: Person, Place Memory: Intact Attention: Poor Concentration: Poor Association: WNL Fund of Knowledge: WNL - Mood Mood: Depressed, Anxious - Affect Affect: Flat - Formal Thought Process Formal Thought Process: No Impairment - Suicidal Ideation Suicidal Ideation: No - Homicidal Ideation Homicidal Ideation: No Goal/Treatment Plan - Goal/Treatment Plan Need for Continued Stay: Remain at risks for inpatient hospitalization, Severe depression anxiety, Discharge may exacerbated symptoms, Severe functional impairment Progress Toward Problem(s) and Goals/Treatment Plan: Milieu/structure/supportive therapy Medical consult will be called for withdrawals will start symptomatic treatment for opioid withdrawals librium will be d/c ativan 3mg po qid for benzos withdrawals seroquel started by psychiatrist manager regional sales remeron 15mg po hs for depression and insomnia neurontin tramadol PRN meds multivitamies SW consultation for discharge plan and social issues Med management Family involvement Follow up on labs Will monitor closely Pt was educated about risk/benefits and alternatives of medications, coping strategies (safety plan, suicide prevention), relapse prevention, importance of follow up with psychiatrist and therapist, stay away from drugs/alcohol/smoking Estimated Date of D/C: 11/10/17
[2017-11-04 22:23] VITALS: RESP 20
--- NOTE | 2017-11-05 04:33 | CON ---
DATE: 11/04/2017 CARDIOLOGY CONSULTATION REASON FOR CONSULTATION: Sinus bradycardia. HISTORY OF PRESENT ILLNESS: Patient is a 36-year-old male who had a history of intravenous heroin abuse, has a history of seizure disorder diagnosed a few months ago at [facility], history of EtOH abuse. He presents because of depression as well as suicidal thoughts, who was noted on a second EKG to have sinus bradycardia at the rate of 42. Patient denies any dizziness or syncope. Patient did report palpitation in the past. SOCIAL HISTORY: Patient is a smoker, EtOH abuser, using heroin and denies sharing needles. MEDICATIONS: Ativan 2 mg p.o. four times a day, clonidine 0.1 mg every 12 hours p.r.n., milk of magnesia 30 mL daily p.r.n. for constipation, Neurontin 300 mg t.i.d., Nicoderm patch, Remeron 50 mg p.o. at bedtime, Seroquel 50 mg at bedtime, tramadol 50 mg t.i.d., Zofran 4 mg p.o. every 8 hours. REVIEW OF SYSTEMS: No recent seizure after his hospitalization a few months ago at [facility]. PHYSICAL EXAMINATION: GENERAL: Patient is a young middle-aged male who does not appear to be in acute distress, however, the patient is always wrapping scarf around his eyes and refused to have eye contact with me. He spoke to me from behind the scarf. So the eye examination could not be performed. NECK: No JVD. CHEST: Clear. HEART: S1 and S2 regular. ABDOMEN: Soft. EXTREMITIES: No edema LABORATORY DATA: Hemoglobin and hematocrit 15.9 and 38.6. White count and platelet count are within normal limits. SMA-7 is entirely within normal limits. Triglycerides 180, total cholesterol 206, TSH level today is 0.16, although it was normal level yesterday. Urine drug screen is positive for amphetamines and opiates. RPR nonreactive. Initial EKG on 11/02 revealed normal sinus rhythm, inferior infarct, age indeterminate. Yesterday's EKG revealed sinus bradycardia at the rate of 42, inferior infarct, age indeterminate. Echocardiographic study performed today revealed normal chamber size, normal ejection fraction, no vegetation, thrombus or pulmonary embolus noted. ASSESSMENT: 1. Sinus bradycardia, reported yesterday. The patient's heart rate at the time of examination was 68, earlier today was 51 beats per minute. 2. Rule out hypothyroidism. 3. 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 4. Depression. RECOMMENDATIONS: Discontinue clonidine, continue the rest of medications, repeat TSH level, and repeat 12-lead EKG. Rajinder Castaneda MD
--- NOTE | 2017-11-05 08:07 | CARD ---
APPROVED REPORT EKG Measurement Heart [id number] <Conclusion> Normal sinus rhythm Q in 2,3,QAVF Inferior infarct? age Old?
--- NOTE | 2017-11-05 08:55 | CP.PCM.PN ---
<Steffen Burk - Last Filed: 11/05/17 13:37> Subjective - Date & Time of Evaluation Date of Evaluation: 11/05/17 Time of Evaluation: 08:00 - Subjective Subjective: Medicine Note for Dr. Fay Patient seen and examined at bedside. No acute event overnihgt. Patient has been asymptomatic. He has no complaints. He is tolerating diet and having normal BMs. Objective - Vital Signs/Intake and Output Vital Signs (last 24 hours): Temp Pulse Resp BP Pulse Ox 97.9 F 72 20 127/78 100 11/05/17 07:28 11/05/17 07:28 11/05/17 07:28 11/05/17 07:28 11/03/17 23:30 - Medications Medications: Current Medications Acetaminophen (Tylenol 325mg Tab) 650 mg PO Q6H PRN PRN Reason: Fever >100.4 F Al Hydrox/Mg Hydrox/Simethicone (Maalox Plus 30 Ml) 30 ml PO DAILY PRN PRN Reason: Dyspepsia Gabapentin (Neurontin) 300 mg PO TID [facility] PRN Reason: Protocol Last Admin: 11/04/17 18:55 Dose: Not Given Lorazepam (Ativan) 2 mg PO QID PRN; Protocol PRN Reason: anxiety/agitation Last Admin: 11/04/17 06:08 Dose: 2 mg Lorazepam (Ativan) 3 mg PO QID [facility] PRN Reason: Protocol Last Admin: 11/05/17 07:04 Dose: 3 mg Magnesium Hydroxide (Milk Of Magnesia) 30 ml PO DAILY PRN PRN Reason: Constipation Mirtazapine (Remeron) 15 mg PO [facility] Last Admin: 11/04/17 21:33 Dose: 15 mg Multivitamins/Minerals (Therapeutic-M Tab) 1 tab PO 0800 [facility] Last Admin: 11/04/17 09:36 Dose: 1 tab Nicotine (Nicoderm Cq) 1 patch TD DAILY [facility] Last Admin: 11/04/17 09:36 Dose: 1 patch Ondansetron HCl (Zofran Odt) 4 mg PO Q8H PRN PRN Reason: Nausea/Vomiting Last Admin: 11/03/17 12:26 Dose: 4 mg Polyethylene Glycol (Miralax) 17 gm PO DAILY PRN PRN Reason: Constipation Quetiapine Fumarate (Seroquel) 50 mg PO [facility] PRN Reason: Protocol Last Admin: 11/04/17 21:32 Dose: 50 mg Quetiapine Fumarate (Seroquel) 25 mg PO DAILY [facility] PRN Reason: Protocol Last Admin: 11/04/17 09:35 Dose: 25 mg Tramadol HCl (Ultram) 50 mg PO TID [facility] Last Admin: 11/04/17 18:56 Dose: Not Given Ziprasidone (Geodon Cap) 20 mg PO Q6H PRN; Protocol PRN Reason: agitation/aggression - Constitutional Appears: No Acute Distress - Head Exam Head Exam: ATRAUMATIC, NORMOCEPHALIC - Eye Exam Eye Exam: EOMI Pupil Exam: PERRL - ENT Exam ENT Exam: Mucous Membranes Moist - Respiratory Exam Respiratory Exam: NORMAL BREATHING PATTERN - Cardiovascular Exam Cardiovascular Exam: REGULAR RHYTHM, +S1, +S2 - GI/Abdominal Exam GI & Abdominal Exam: Soft, Normal Bowel Sounds. absent: Tenderness - Extremities Exam Extremities Exam: Normal Capillary Refill - Back Exam Back Exam: absent: CVA tenderness (L), CVA tenderness (R) - Neurological Exam Neurological Exam: Alert, Awake, Oriented x3 - Psychiatric Exam Psychiatric exam: Normal Affect, Normal Mood - Skin Skin Exam: Dry, Intact, Normal Color, Warm Assessment and Plan - Assessment and Plan (Free Text) Plan: 36M with PMH for substance abuse and depression consulted for bradycardia in setting of opiate abuse Asymptomatic Bradycardia EKG w/sinus bradycardia w/inferior infarct of indet age- seen on previous EKGs FU echo FT4 1.16- WNL TSH 0.16 from 0.24- low Cards consulted f/u TSH, Free T4 and thyroid abs Constipation MagOx Miralax PRN Colace Monitor Hep C FU HIV RPR neg Encouraged to follow up outpatient for Hep C upon discharge Tobacco abuse Already on Nicotine patch Substance abuse as per psych Librium Ativan Seroquel Geodon Remeron Clonidine Zofran Monitor Discussed with Dr. Sumeet Burk PGY1 <Ceferino Fay - Last Filed: 11/05/17 17:16> Objective - Vital Signs/Intake and Output Vital Signs (last 24 hours): Temp Pulse Resp BP Pulse Ox 97.9 F 72 20 123/67 100 11/05/17 07:28 11/05/17 16:12 11/05/17 07:28 11/05/17 16:12 11/03/17 23:30 - Medications Medications: Current Medications Acetaminophen (Tylenol 325mg Tab) 650 mg PO Q6H PRN PRN Reason: Fever >100.4 F Al Hydrox/Mg Hydrox/Simethicone (Maalox Plus 30 Ml) 30 ml PO DAILY PRN PRN Reason: Dyspepsia Gabapentin (Neurontin) 300 mg PO TID [facility] PRN Reason: Protocol Last Admin: 11/05/17 13:52 Dose: 300 mg Lorazepam (Ativan) 2 mg PO QID PRN; Protocol PRN Reason: anxiety/agitation Last Admin: 11/04/17 06:08 Dose: 2 mg Lorazepam (Ativan) 2 mg PO QID [facility] PRN Reason: Protocol Last Admin: 11/05/17 13:51 Dose: 2 mg Magnesium Hydroxide (Milk Of Magnesia) 30 ml PO DAILY PRN PRN Reason: Constipation Mirtazapine (Remeron) 30 mg PO HS [facility] Multivitamins/Minerals (Therapeutic-M Tab) 1 tab PO 0800 [facility] Last Admin: 11/05/17 09:07 Dose: 1 tab Nicotine (Nicoderm Cq) 1 patch TD DAILY [facility] Last Admin: 11/05/17 09:04 Dose: 1 patch Ondansetron HCl (Zofran Odt) 4 mg PO Q8H PRN PRN Reason: Nausea/Vomiting Last Admin: 11/03/17 12:26 Dose: 4 mg Polyethylene Glycol (Miralax) 17 gm PO DAILY PRN PRN Reason: Constipation Quetiapine Fumarate (Seroquel) 100 mg PO HS [facility] PRN Reason: Protocol Quetiapine Fumarate (Seroquel) 50 mg PO DAILY [facility] PRN Reason: Protocol Tramadol HCl (Ultram) 50 mg PO TID PRN PRN Reason: severe pain Ziprasidone (Geodon Cap) 20 mg PO Q6H PRN; Protocol PRN Reason: agitation/aggression Attending/Attestation - Attestation I have personally seen and examined this patient.: Yes I have fully participated in the care of the patient.: Yes I have reviewed all pertinent clinical information, including history, physical exam and plan: Yes Notes (Text): 36M with PMH for substance abuse and depression consulted for bradycardia in setting of opiate abuse Asymptomatic Bradycardia
[2017-11-05] MEDS: Multivitamin With Minerals Tab PO SCH (09:07)
--- NOTE | 2017-11-05 12:09 | PCM.PYCHPN ---
Psychiatric Progress Note - Psychiatric Progress Note Patient seen today, length of contact: 30 minutes Patient Chief Complaint: "I feel little better" Problems Identified/Issues Discussed: Suicide/ homicide prevention, past psychiatric h/o, current psychiatric symptoms , medical problems, risk/benefits and alternatives of medications, medications compliance, coping strategies, substance abuse h/o, relapse prevention, importance of follow up with psychiatrist and therapist, discharge plan. Medical Problems: as per patient he has hepatitis C, bradycardia, polysubstance abuse and dependence, opioid withdrawals under control, benzodiazepines with rules under control Diagnostic Results: 11/02/17 17:34 11/02/17 17:34 Lab Results 11/04/17 08:00: Free T4 1.16, TSH 3rd Generation 0.16 L 11/03/17 19:00: TSH 3rd Generation 0.24 L 11/03/17 07:00: RPR Nonreactive 11/03/17 07:00: TSH 3rd Generation 0.68 11/03/17 07:00: Fasting Glucose 86, Triglycerides 180 H, Cholesterol 206 H, LDL Cholesterol Direct 126, HDL Cholesterol 33 11/02/17 19:35: Urine Opiates Screen Positive H, Urine Methadone Screen Negative , Ur Barbiturates Screen Negative, Ur Phencyclidine Scrn Negative, Ur Amphetamines Screen Positive H, U Benzodiazepines Scrn Positive, U Oth Cocaine Metabols Negative, U Cannabinoids Screen Negative 11/02/17 19:35: Urine Color Yellow, Urine Appearance Clear, Urine pH 6.0, Ur Specific [place] >= 1.030, Urine Protein Trace H, Urine Glucose (UA) Negative, Urine Ketones Trace H, Urine Blood Negative, Urine Nitrate Negative, Urine Bilirubin Negative, Urine Urobilinogen 1.0 H, Ur Leukocyte Esterase Negative, Urine RBC 0 - 2, Urine WBC 0 - 2, Ur Epithelial Cells 0 - 2 11/02/17 17:34: Alcohol, Quantitative < 10 11/02/17 17:34: Salicylates < 1 L, Acetaminophen < 10.0 L 11/02/17 17:34: Sodium 143, Potassium 3.6, Chloride 103, Carbon Dioxide 28, Anion Gap 16, BUN 16, Creatinine 0.8, Est GFR ( Amer) > 60, Est GFR (Non- Af Amer) > 60, Random Glucose 110, Calcium 9.2, Total Bilirubin 0.8, AST 51, ALT 86 H, Alkaline Phosphatase 73, Total Protein 7.5, Albumin 4.0, Globulin 3.5 , Albumin/Globulin Ratio 1.1 11/02/17 17:34: WBC 4.5, RBC 4.72, Hgb 13.9 L, Hct 38.6 L, MCV 81.8, MCH 29.4, MCHC 36.0, RDW 13.3, Plt Count 197, MPV 9.0, Gran % 53.4, Lymph % (Auto) 36.1 H , [place] % (Auto) 9.4 H, Eos % (Auto) 0.7 L, Baso % (Auto) 0.4, Gran # 2.40, Lymph # (Auto) 1.6, [place] # (Auto) 0.4, Eos # (Auto) 0.0, Baso # (Auto) 0.02 Vital Signs Temp Pulse Resp BP Pulse Ox 11/04/17 06:56 97.9 F 51 L 22 100/51 L 11/03/17 23:30 61 20 127/75 100 11/03/17 21:40 98.7 F 46 L 20 96/56 L 100 11/03/17 16:00 46 L 106/63 11/03/17 13:45 97.6 F 49 L 17 109/69 11/03/17 10:45 97.5 F L 60 18 109/60 11/03/17 09:45 -97.5 F L 60 18 100/60 11/03/17 09:15 97.6 F 53 L 16 95/55 L 11/02/17 22:31 19 11/02/17 20:54 98.2 F 62 18 112/61 100 11/02/17 18:30 68 20 117/62 99 11/02/17 16:44 98.6 F 82 16 118/80 99 Laboratory Results - last 24 hr 11/04/17 11/05/17 07:00 06:00 TSH 3rd Generation 0.23 L HIV 1&2 Ag/Ab, 4th Gen Nonreactive Echocardiogram was WNL 11/04/17 DSM 5 Symptoms Update: shortly pt is 36yo male with reported h/o polysubstance abuse and dependence, h/ o multiple detoxes, h/o psych admissions, most recent was at [facility] in 2016, pt brought himself to the hospital for evaluation of depressive symptoms, possible suicidal ideation with the plan to jump in front of the train, in context of constant use drugs, social stress such losing his job and recent brake up with his girlfriend. pt reported that he had a plan to jump in front of the train, pt requires further evaluation and stabilization, observation. pt was seen today at the treatment team meeting, pt refused to participate on Friday due to withdrawals. pt presented with improved personal hygiene, overall presented better, was able to hold the interview. pt said he feels "little better", as per staff pt is more visible on the unit, but still does not participate in unit activities. pt had a meeting with SW, willing to go ot inpatient rehab. pt was seen by chip separator, ECHOcardiogram was wnl, TSH low. pt c/o insomnia and depression, remeron will be increased. pt does not appear to be psychotic, no agitation or aggression. pt was more pleasant today. So far no behavioral incidents, tolerates medications well, no side effects observed or reported, aims 0, no EPS. DSM 5 Diagnosis: r/o MDD r/o substance induced mood disorder polysubstance dependence adjustment disorder with depressed and anxious mood Medication Change: Yes (remeron increased) Medical Record Reviewed: Yes Mental Status Examination - Cognitive Function Orientation: Person, Place Memory: Intact Attention: Poor Concentration: Poor Association: WNL Fund of Knowledge: WNL - Mood Mood: Depressed, Anxious - Affect Affect: Flat - Formal Thought Process Formal Thought Process: No Impairment - Suicidal Ideation Suicidal Ideation: No - Homicidal Ideation Homicidal Ideation: No Goal/Treatment Plan - Goal/Treatment Plan Need for Continued Stay: Remain at risks for inpatient hospitalization, Severe depression anxiety, Discharge may exacerbated symptoms, Severe functional impairment Progress Toward Problem(s) and Goals/Treatment Plan: Milieu/structure/supportive therapy Medical consult will be called for withdrawals will start symptomatic treatment for opioid withdrawals ativan 3mg po qid for benzos withdrawals seroquel started by psychiatrist monitor tech remeron 30mg po hs for depression and insomnia neurontin 300mg po tid for mood stabilization tramadol prn PRN meds multivitamies SW consultation for discharge plan and social issues Med management Family involvement Follow up on labs Will monitor closely Pt was educated about risk/benefits and alternatives of medications, coping strategies (safety plan, suicide prevention), relapse prevention, importance of follow up with psychiatrist and therapist, stay away from drugs/alcohol/smoking Estimated Date of D/C: 11/10/17
--- NOTE | 2017-11-05 15:45 | PN ---
DATE: 11/05/2017 SUBJECTIVE: The patient denies any dizziness. He is still wrapping his eyes with a scarf and refuses to take it off and no chest pain. PHYSICAL EXAMINATION: VITAL SIGNS: Blood pressure 127/78, heart rate 72, temperature 97.9, respirations 20. Yesterday's heart rate was 100 at 10:00 p.m. HEENT: Eyes could not be examined because the patient is wrapping his eyes. NECK: No JVD. CHEST: Clear. HEART: S1 and S2 regular. EXTREMITIES: No edema. DATA: Echocardiograph study, normal ejection fraction, trace tricuspid regurgitation and normal right ventricular systolic pressure. Repeat EKG yesterday revealed normal sinus rhythm wave in the inferior leads, heart rate 68. ASSESSMENT: 1. Improved sinus bradycardia. 2. Active intravenous drug abuser. 3. History of seizures. RECOMMENDATIONS: Case was discussed with the medical team. No further cardiac workup; however, further evaluation of the persistently low TSH level. As recommended the most recent one today, 0.23. Rajinder Castaneda MD
[2017-11-06] MEDS: Multivitamin With Minerals Tab PO SCH (08:34)
--- NOTE | 2017-11-06 11:41 | CP.PCM.PN ---
<Steffen Burk - Last Filed: 11/06/17 11:56> Subjective - Date & Time of Evaluation Date of Evaluation: 11/06/17 Time of Evaluation: 07:15 - Subjective Subjective: Medicine Note for Dr. Yee Patient seen and examined at bedside. No acute event overnight. Patient has had diarrhea. He will receive immodium. He is tolerating diet. No other complaints at this time. Objective - Vital Signs/Intake and Output Vital Signs (last 24 hours): Temp Pulse Resp BP Pulse Ox 98.1 F 49 L 20 123/75 100 11/06/17 07:12 11/06/17 07:12 11/06/17 07:12 11/06/17 07:12 11/03/17 23:30 - Medications Medications: Current Medications Acetaminophen (Tylenol 325mg Tab) 650 mg PO Q6H PRN PRN Reason: Fever >100.4 F Al Hydrox/Mg Hydrox/Simethicone (Maalox Plus 30 Ml) 30 ml PO DAILY PRN PRN Reason: Dyspepsia Gabapentin (Neurontin) 300 mg PO TID [facility] PRN Reason: Protocol Last Admin: 11/06/17 08:34 Dose: 300 mg Loperamide HCl (Imodium) 2 mg PO Q4H PRN PRN Reason: Diarrhea Lorazepam (Ativan) 2 mg PO QID PRN; Protocol PRN Reason: anxiety/agitation Last Admin: 11/06/17 11:19 Dose: 2 mg Lorazepam (Ativan) 2 mg PO QID [facility] PRN Reason: Protocol Last Admin: 11/06/17 08:34 Dose: 2 mg Magnesium Hydroxide (Milk Of Magnesia) 30 ml PO DAILY PRN PRN Reason: Constipation Mirtazapine (Remeron) 30 mg PO HS [facility] Last Admin: 11/05/17 21:21 Dose: 30 mg Multivitamins/Minerals (Therapeutic-M Tab) 1 tab PO 0800 [facility] Last Admin: 11/06/17 08:34 Dose: 1 tab Nicotine (Nicoderm Cq) 1 patch TD DAILY [facility] Last Admin: 11/06/17 09:06 Dose: Not Given Ondansetron HCl (Zofran Odt) 4 mg PO Q8H PRN PRN Reason: Nausea/Vomiting Last Admin: 11/03/17 12:26 Dose: 4 mg Polyethylene Glycol (Miralax) 17 gm PO DAILY PRN PRN Reason: Constipation Quetiapine Fumarate (Seroquel) 100 mg PO HS [facility] PRN Reason: Protocol Last Admin: 11/05/17 21:22 Dose: 100 mg Quetiapine Fumarate (Seroquel) 50 mg PO DAILY [facility] PRN Reason: Protocol Last Admin: 11/06/17 08:33 Dose: 50 mg Tramadol HCl (Ultram) 50 mg PO TID PRN PRN Reason: severe pain Ziprasidone (Geodon Cap) 20 mg PO Q6H PRN; Protocol PRN Reason: agitation/aggression Last Admin: 11/06/17 01:11 Dose: 20 mg - Additional Findings Additional findings: - Constitutional Appears: No Acute Distress - Head Exam Head Exam: ATRAUMATIC, NORMOCEPHALIC - Eye Exam Eye Exam: EOMI Pupil Exam: PERRL - ENT Exam ENT Exam: Mucous Membranes Moist - Respiratory Exam Respiratory Exam: NORMAL BREATHING PATTERN - Cardiovascular Exam Cardiovascular Exam: REGULAR RHYTHM, +S1, +S2 - GI/Abdominal Exam GI & Abdominal Exam: Soft, Normal Bowel Sounds. absent: Tenderness - Extremities Exam Extremities Exam: Normal Capillary Refill - Back Exam Back Exam: absent: CVA tenderness (L), CVA tenderness (R) - Neurological Exam Neurological Exam: Alert, Awake, Oriented x3 - Psychiatric Exam Psychiatric exam: Normal Affect, Normal Mood - Skin Skin Exam: Dry, Intact, Normal Color, Warm Assessment and Plan - Assessment and Plan (Free Text) Assessment: 36M with PMH for substance abuse and depression consulted for bradycardia in setting of opiate abuse Asymptomatic Bradycardia EKG w/sinus bradycardia w/inferior infarct of indet age- seen on previous EKGs FU echo FT4 1.16- WNL TSH 0.16 from 0.24- low Cards consulted f/u TSH, Free T4 and thyroid abs Constipation resolved MagOx Miralax PRN Colace Monitor Diarrhea hold constipation meds Immodium PRN Hep C FU HIV RPR neg Encouraged to follow up outpatient for Hep C upon discharge Tobacco abuse Already on Nicotine patch Substance abuse Librium Ativan Seroquel Geodon Remeron Clonidine Zofran Monitor Discussed with Dr. Nakia Burk PGY1 <Monse Yee B - Last Filed: 11/06/17 13:20> Objective - Vital Signs/Intake and Output Vital Signs (last 24 hours): Temp Pulse Resp BP Pulse Ox 98.1 F 49 L 20 123/75 100 11/06/17 07:12 11/06/17 07:12 11/06/17 07:12 11/06/17 07:12 11/03/17 23:30 - Medications Medications: Current Medications Acetaminophen (Tylenol 325mg Tab) 650 mg PO Q6H PRN PRN Reason: Fever >100.4 F Al Hydrox/Mg Hydrox/Simethicone (Maalox Plus 30 Ml) 30 ml PO DAILY PRN PRN Reason: Dyspepsia Gabapentin (Neurontin) 300 mg PO TID [facility] PRN Reason: Protocol Last Admin: 11/06/17 08:34 Dose: 300 mg Loperamide HCl (Imodium) 2 mg PO Q4H PRN PRN Reason: Diarrhea Lorazepam (Ativan) 2 mg PO QID PRN; Protocol PRN Reason: anxiety/agitation Last Admin: 11/06/17 11:19 Dose: 2 mg Lorazepam (Ativan) 2 mg PO QID [facility] PRN Reason: Protocol Last Admin: 11/06/17 08:34 Dose: 2 mg Magnesium Hydroxide (Milk Of Magnesia) 30 ml PO DAILY PRN PRN Reason: Constipation Mirtazapine (Remeron) 30 mg PO HS [facility] Last Admin: 11/05/17 21:21 Dose: 30 mg Multivitamins/Minerals (Therapeutic-M Tab) 1 tab PO 0800 [facility] Last Admin: 11/06/17 08:34 Dose: 1 tab Nicotine (Nicoderm Cq) 1 patch TD DAILY [facility] Last Admin: 11/06/17 09:06 Dose: Not Given Ondansetron HCl (Zofran Odt) 4 mg PO Q8H PRN PRN Reason: Nausea/Vomiting Last Admin: 11/06/17 12:49 Dose: 4 mg Polyethylene Glycol (Miralax) 17 gm PO DAILY PRN PRN Reason: Constipation Quetiapine Fumarate (Seroquel) 100 mg PO HS [facility] PRN Reason: Protocol Last Admin: 11/05/17 21:22 Dose: 100 mg Quetiapine Fumarate (Seroquel) 50 mg PO DAILY [facility] PRN Reason: Protocol Last Admin: 11/06/17 08:33 Dose: 50 mg Tramadol HCl (Ultram) 50 mg PO TID PRN PRN Reason: severe pain Ziprasidone (Geodon Cap) 20 mg PO Q6H PRN; Protocol PRN Reason: agitation/aggression Last Admin: 11/06/17 01:11 Dose: 20 mg Attending/Attestation - Attestation I have personally seen and examined this patient.: Yes I have fully participated in the care of the patient.: Yes I have reviewed all pertinent clinical information, including history, physical exam and plan: Yes Notes (Text): I have seen and examined the patient at bedside. Agree with the above note with the following additions/ exceptions: Briefly this is 36 year old male with history of depression, arthritis, anxiety, known and untreated HepC, tobacco use , IVDA heroin use, benzodiazepines over use who was admitted to psych unit for depression, suicidal ideation and is going thru alcohol withdrawal syndrome. We were consulted for bradycardia. Patient does not have chest pain, sob, dizziness or any other complaints. Recommend to repeat TFTs as an outpatient in 4-6 weeks. Echocardiogram is normal. Discussed with paint technician. Patient is on geodon which can cause bradycardia. Avoid beta blockers, clonidine, amiodarone and non dihyropyridine CCB. Patient is hemodynamically stable at this time. He had bradycardia in past admissions as well. Will continue to follow this patient.
--- NOTE | 2017-11-06 15:34 | PCM.PYCHPN ---
Psychiatric Progress Note - Psychiatric Progress Note Patient seen today, length of contact: 30 minutes Patient Chief Complaint: "U better give me something for seizures because if you will wean me off from benzodiazepines I will have seizures..." Problems Identified/Issues Discussed: Suicide/ homicide prevention, past psychiatric h/o, current psychiatric symptoms , medical problems, risk/benefits and alternatives of medications, medications compliance, coping strategies, substance abuse h/o, relapse prevention, importance of follow up with psychiatrist and therapist, discharge plan. Medical Problems: as per patient he has hepatitis C, bradycardia, polysubstance abuse and dependence, opioid withdrawals under control, benzodiazepines with rules under control Diagnostic Results: 11/02/17 17:34 11/02/17 17:34 Lab Results 11/04/17 08:00: Free T4 1.16, TSH 3rd Generation 0.16 L 11/03/17 19:00: TSH 3rd Generation 0.24 L 11/03/17 07:00: RPR Nonreactive 11/03/17 07:00: TSH 3rd Generation 0.68 11/03/17 07:00: Fasting Glucose 86, Triglycerides 180 H, Cholesterol 206 H, LDL Cholesterol Direct 126, HDL Cholesterol 33 11/02/17 19:35: Urine Opiates Screen Positive H, Urine Methadone Screen Negative , Ur Barbiturates Screen Negative, Ur Phencyclidine Scrn Negative, Ur Amphetamines Screen Positive H, U Benzodiazepines Scrn Positive, U Oth Cocaine Metabols Negative, U Cannabinoids Screen Negative 11/02/17 19:35: Urine Color Yellow, Urine Appearance Clear, Urine pH 6.0, Ur Specific [place] >= 1.030, Urine Protein Trace H, Urine Glucose (UA) Negative, Urine Ketones Trace H, Urine Blood Negative, Urine Nitrate Negative, Urine Bilirubin Negative, Urine Urobilinogen 1.0 H, Ur Leukocyte Esterase Negative, Urine RBC 0 - 2, Urine WBC 0 - 2, Ur Epithelial Cells 0 - 2 11/02/17 17:34: Alcohol, Quantitative < 10 11/02/17 17:34: Salicylates < 1 L, Acetaminophen < 10.0 L 11/02/17 17:34: Sodium 143, Potassium 3.6, Chloride 103, Carbon Dioxide 28, Anion Gap 16, BUN 16, Creatinine 0.8, Est GFR ( Amer) > 60, Est GFR (Non- Af Amer) > 60, Random Glucose 110, Calcium 9.2, Total Bilirubin 0.8, AST 51, ALT 86 H, Alkaline Phosphatase 73, Total Protein 7.5, Albumin 4.0, Globulin 3.5 , Albumin/Globulin Ratio 1.1 11/02/17 17:34: WBC 4.5, RBC 4.72, Hgb 13.9 L, Hct 38.6 L, MCV 81.8, MCH 29.4, MCHC 36.0, RDW 13.3, Plt Count 197, MPV 9.0, Gran % 53.4, Lymph % (Auto) 36.1 H , Creek % (Auto) 9.4 H, Eos % (Auto) 0.7 L, Baso % (Auto) 0.4, Gran # 2.40, Lymph # (Auto) 1.6, Creek # (Auto) 0.4, Eos # (Auto) 0.0, Baso # (Auto) 0.02 Vital Signs Temp Pulse Resp BP Pulse Ox 11/04/17 06:56 97.9 F 51 L 22 100/51 L 11/03/17 23:30 61 20 127/75 100 11/03/17 21:40 98.7 F 46 L 20 96/56 L 100 11/03/17 16:00 46 L 106/63 11/03/17 13:45 97.6 F 49 L 17 109/69 11/03/17 10:45 97.5 F L 60 18 109/60 11/03/17 09:45 -97.5 F L 60 18 100/60 11/03/17 09:15 97.6 F 53 L 16 95/55 L 11/02/17 22:31 19 11/02/17 20:54 98.2 F 62 18 112/61 100 11/02/17 18:30 68 20 117/62 99 11/02/17 16:44 98.6 F 82 16 118/80 99 Laboratory Results - last 24 hr 11/04/17 11/05/17 07:00 06:00 TSH 3rd Generation 0.23 L HIV 1&2 Ag/Ab, 4th Gen Nonreactive Echocardiogram was WNL 11/04/17 DSM 5 Symptoms Update: shortly pt is 36yo male with reported h/o polysubstance abuse and dependence, h/ o multiple detoxes, h/o psych admissions, most recent was at [facility] in 2016, pt brought himself to the hospital for evaluation of depressive symptoms, possible suicidal ideation with the plan to jump in front of the train, in context of constant use drugs, social stress such losing his job and recent brake up with his girlfriend. pt reported that he had a plan to jump in front of the train, pt requires further evaluation and stabilization, observation. pt was seen today at the TV room, pt started to socialize with others, more visible in the unit. As per report overnight patient was agitated, required to have Geodon by mouth, Patient was cursing, grabbing PCP. Patient complained that he is not able to sleep Remeron will be increased to 45 mg at the nighttime for depression and insomnia, patient requested to be on trazodone at the same time we will consider to do so. Patient appears to be labile, at times appears to be on the wait, at times very charming, obviously patient is not ready for discharge. Patient said that whenever other physicians try to wean him off from the benzodiazepines he would have seizures, patient reported to be on Keppra in the past, does not remember dose, this writer editor offered Depakote for mood stabilization, as well as for seizures, patient reported that "I did not like the way it makes me feel". We'll will call for neurology consultation and we will follow advice. pt had a meeting with JOSE, willing to go ot inpatient rehab. pt was seen by water conservation specialist, ECHOcardiogram was wnl, TSH low. pt does not appear to be psychotic, strong antisocial traits. pt was more pleasant today. pt tolerates medications well, no side effects observed or reported, aims 0, no EPS. DSM 5 Diagnosis: r/o MDD r/o substance induced mood disorder polysubstance dependence adjustment disorder with depressed and anxious mood Medication Change: Yes (remeron, seroquel, neurontin increased) Medical Record Reviewed: Yes Consults ordered or reviewed: medical consult appreciated, medical team suggested cardiology consult for bradycardia Neurology consult was called Mental Status Examination - Cognitive Function Orientation: Person, Place Memory: Intact Attention: Poor (some improvement) Concentration: Poor (some improvement) Association: WNL Fund of Knowledge: WNL - Mood Mood: Depressed (I feel little better), Anxious - Affect Affect: Constricted - Formal Thought Process Formal Thought Process: No Impairment - Suicidal Ideation Suicidal Ideation: No - Homicidal Ideation Homicidal Ideation: No Goal/Treatment Plan - Goal/Treatment Plan Need for Continued Stay: Remain at risks for inpatient hospitalization, Severe depression anxiety, Discharge may exacerbated symptoms, Severe functional impairment Progress Toward Problem(s) and Goals/Treatment Plan: Milieu/structure/supportive therapy Medical consult appreciated please see notes for more detailed information Cardiology consult appreciated Neurology consultation will be called for medication for possible seizures patient is on symptomatic treatment for opioid withdrawals ativan 2 mg 4 times a day with a plan to taper that off Seroquel will be increased to 50 mg at the morning time in 200 mgat the nighttime remeron 45mg po hs for depression and insomnia neurontin 600mg po tid for mood stabilization tramadol prn PRN meds multivitamies SW consultation for discharge plan and social issues Med management Family involvement Follow up on labs Will monitor closely Pt was educated about risk/benefits and alternatives of medications, coping strategies (safety plan, suicide prevention), relapse prevention, importance of follow up with psychiatrist and therapist, stay away from drugs/alcohol/smoking Estimated Date of D/C: 11/10/17
--- NOTE | 2017-11-07 08:40 | CP.PCM.CON ---
History of Present Illness - History of Present Illness History of Present Illness: Neurology Consult note for Dr. Triana Reason for consult: withdrawal seizures Please note patient was seen on two occasions and both times he was uncooperative with interview and exam 36yo male PMHx depression, SI, arthritis, anxiety, hep C presented to psych for depression and suicidal ideations. Neurology consulted for withdrawal seizures as patient admits to xanax abuse. Patient briefly stated that he has seizures when he does not take his medications but was overall unwilling to cooperate with any more history. ROS unobtainable secondary to patient being uncooperative PMHx: Depression, SI, arthritis, anxiety, Hep C PSurgHx: denies Meds: pls see chart Allergies: NKDA SocHx: Admits to tobacco use - 1ppd x 20 yrs, denies ETOH use, admits to heroin and xanax abuse FamHx: HTN PMD: denies Review of Systems - Review of Systems Systems not reviewed;Unavailable: Uncooperative Past Patient History - Infectious Disease Hx of Infectious Diseases: None - Tetanus Immunizations Tetanus Immunization: Unknown - Past Medical History & Family History Past Medical History?: Yes - Past Social History Smoking Status: Heavy Smoker > 10 Cigarettes Daily - CARDIAC Hx Hypertension: Yes - PULMONARY Hx Asthma: Yes - NEUROLOGICAL Hx Alzheimer's Disease: No Hx Dementia: No Hx Migraine: No Hx Multiple Sclerosis: No Hx Parkinson's Disease: No Hx Seizures: No Hx Transient Ischemic Attacks (TIA): No - HEENT Hx HEENT Problems: No Hx Cataracts: No Hx Deafness: No Hx Difficulty Chewing: No Hx Epistaxis: No Hx Glaucoma: No Hx Macular Degeneration: No - RENAL Hx Chronic Kidney Disease: No Hx Kidney Stones: No - ENDOCRINE/METABOLIC Hx Hyperthyroidism: No Hx Hypothyroidism: No - HEMATOLOGICAL/ONCOLOGICAL Hx Anemia: No Hx Sickle Cell Disease: No - INTEGUMENTARY Hx Dermatological Problems: No Hx Basil Cell: No Hx Baxter: No Hx Cellulitis: No Hx Eczema: No Hx Melanoma: No Hx Psoriasis: No Hx Squamous Cell: No - MUSCULOSKELETAL/RHEUMATOLOGICAL Hx Arthritis: Yes - GASTROINTESTINAL Hx Crohn's Disease: No Hx Diverticulitis: No Hx Gall Bladder Disease: No Hx Gastritis: No Hx Pancreatitis: No - GENITOURINARY/GYNECOLOGICAL Hx Sexually Transmitted Disorders: No - PSYCHIATRIC Hx Substance Use: Yes - SURGICAL HISTORY Hx Appendectomy: No Hx Carotid Endarterectomy: No Hx Cholecystectomy: No Hx Coronary Artery Bypass Graft: No Hx Coronary Stent: No Hx Tonsillectomy: No - ANESTHESIA Hx Anesthesia: No Meds Allergies/Adverse Reactions: Allergies Allergy/AdvReac Type Severity Reaction Status Date / Time No Known Allergies Allergy Verified 11/03/17 00:08 - Medications Medications: Current Medications Acetaminophen (Tylenol 325mg Tab) 650 mg PO Q6H PRN PRN Reason: Fever >100.4 F Al Hydrox/Mg Hydrox/Simethicone (Maalox Plus 30 Ml) 30 ml PO DAILY PRN PRN Reason: Dyspepsia Gabapentin (Neurontin) 600 mg PO TID [facility] PRN Reason: Protocol Last Admin: 11/06/17 17:56 Dose: 600 mg Loperamide HCl (Imodium) 2 mg PO Q4H PRN PRN Reason: Diarrhea Last Admin: 11/06/17 13:50 Dose: 2 mg Lorazepam (Ativan) 2 mg PO QID PRN; Protocol PRN Reason: anxiety/agitation Last Admin: 11/06/17 11:19 Dose: 2 mg Lorazepam (Ativan) 2 mg PO QID [facility] PRN Reason: Protocol Last Admin: 11/06/17 21:11 Dose: 2 mg Magnesium Hydroxide (Milk Of Magnesia) 30 ml PO DAILY PRN PRN Reason: Constipation Mirtazapine (Remeron) 45 mg PO HS [facility] Last Admin: 11/06/17 21:11 Dose: 45 mg Multivitamins/Minerals (Therapeutic-M Tab) 1 tab PO 0800 [facility] Last Admin: 11/06/17 08:34 Dose: 1 tab Nicotine (Nicoderm Cq) 1 patch TD DAILY [facility] Last Admin: 11/06/17 09:06 Dose: Not Given Ondansetron HCl (Zofran Odt) 4 mg PO Q8H PRN PRN Reason: Nausea/Vomiting Last Admin: 11/06/17 12:49 Dose: 4 mg Polyethylene Glycol (Miralax) 17 gm PO DAILY PRN PRN Reason: Constipation Quetiapine Fumarate (Seroquel) 50 mg PO DAILY [facility] PRN Reason: Protocol Last Admin: 11/06/17 08:33 Dose: 50 mg Quetiapine Fumarate (Seroquel) 200 mg PO HS [facility] PRN Reason: Protocol Last Admin: 11/06/17 21:12 Dose: 200 mg Tramadol HCl (Ultram) 50 mg PO TID PRN PRN Reason: severe pain Ziprasidone (Geodon Cap) 20 mg PO Q6H PRN; Protocol PRN Reason: agitation/aggression Last Admin: 11/06/17 01:11 Dose: 20 mg Physical Exam - Constitutional Appears: Other (uncooperative) Results - Vital Signs Recent Vital Signs: Last Vital Signs Temp 97.8 F 11/07/17 06:50 Pulse 42 L 11/07/17 06:50 Resp 20 11/07/17 06:50 BP 107/72 11/07/17 06:50 Pulse Ox 100 11/03/17 23:30 - Labs Result Diagrams: 11/02/17 17:34 11/02/17 17:34 Assessment & Plan - Assessment and Plan (Free Text) Assessment: 36yo male PMHx depression, SI, arthritis, anxiety, hep C presented to psych for depression and suicidal ideations. Neurology consulted for withdrawal seizures as patient admits to xanax abuse Plan: -recommend Neurontin 800mg tid -recommend longer weaning course of benzodiazepines -continue management as per psych Neurology will signoff at this time Please reconsult as needed Discussed with Dr. Kong Vera PGY2
[2017-11-07] MEDS: Multivitamin With Minerals Tab PO SCH (08:53)
--- NOTE | 2017-11-07 12:47 | PCM.PYCHPN ---
Psychiatric Progress Note - Psychiatric Progress Note Patient seen today, length of contact: 25 minutes Problems Identified/Issues Discussed: Patient is 36 yo male with reported h/o polysubstance abuse and dependence, h/o multiple detoxes, h/o psych admissions, most recent was at [facility] in 2016 who brought himself to the hospital for evaluation of depressive symptoms, possible suicidal ideation with the plan to jump in front of the train, in context of chronic drug use, social stress such losing his job and recent brake up with his girlfriend.. I have reviewed recent staff notes and I met with patient at bedside this morning. He is calm, cooperative and well-oriented to month, year, location and circumstances. Patient reports that he "isn't feeling great" because he didnt sleep very well. Indicates that trazodone at a dose of 150 mg HS was beneficial for him in the past for insomnia. Affect is mildly irritable but in good control. Thought process continues to be coherent and goal directed without evidence of derangement. To this extent patient continues to deny having any perceptual disturbance. Patient is compliant with his medications and denies any side effects new pain or discomfort. He has been more visible on the unit and appears less distressed and less casas. There were no major behavioral issues overnight. Diagnostic Results: r/o MDD r/o substance induced mood disorder polysubstance dependence adjustment disorder with depressed and anxious mood Medication Change: No ( ) Medical Record Reviewed: Yes Mental Status Examination - Cognitive Function Orientation: Person, Place Memory: Intact Attention: WNL (some improvement) Concentration: Poor (some improvement) Association: WNL Fund of Knowledge: WNL - Mood Mood: Depressed (I feel little better), Anxious - Affect Affect: Constricted - Formal Thought Process Formal Thought Process: No Impairment - Suicidal Ideation Suicidal Ideation: No - Homicidal Ideation Homicidal Ideation: No Goal/Treatment Plan - Goal/Treatment Plan Need for Continued Stay: Remain at risks for inpatient hospitalization, Severe depression anxiety, Discharge may exacerbated symptoms, Severe functional impairment Progress Toward Problem(s) and Goals/Treatment Plan: * c/w current tx and plan * Vitals reviewed and noted below: Selected Entries 11/06/17 11/06/17 11/06/17 07:12 16:00 22:00 Temperature 98.1 F Pulse Rate 49 L 43 L 58 L Respiratory 20 Rate Blood Pressure 123/75 114/74 126/78 11/07/17 06:50 Temperature 97.8 F Pulse Rate 42 L Respiratory 20 Rate Blood Pressure 107/72 * No new lab results noted thus far today * Trazodone 100 mg HS initiated on November 07, 2017, off label for insomnia * Ativan 2 mg po QID decreased to 2 mg po TID as vitals signs are stable. c/w Ativan 2 mg po QID PRN. Estimated Date of D/C: 11/10/17
[2017-11-08] MEDS: Multivitamin With Minerals Tab PO SCH (07:49)
--- NOTE | 2017-11-08 10:35 | PCM.PYCHPN ---
Psychiatric Progress Note - Psychiatric Progress Note Patient seen today, length of contact: 25 minutes Problems Identified/Issues Discussed: Patient is 36 yo male with reported h/o polysubstance abuse and dependence, h/o multiple detoxes, h/o psych admissions, most recent was at [facility] in 2016 who brought himself to the hospital for evaluation of depressive symptoms, possible suicidal ideation with the plan to jump in front of the train, in context of chronic drug use, social stress such losing his job and recent brake up with his girlfriend.. I have reviewed recent staff notes and I met with patient in the dayroom. He is groomed, calm, cooperative and well-oriented to month, year, location and circumstances. Patient reports that he is "actually feeling better today". He does appear brighter and more nourished. Focus is good and he seems less stressed in general. Sleep is improved but still restless. He is agreeable to increasing trazodone further today. Anxiety continues to be an issue and patient is honest that it will likely always be an issue because he "loves xanax, it's my drug of choice" . Thought process continues to be coherent and goal directed without evidence of derangement. To this extent patient continues to deny having any perceptual disturbance. Patient is compliant with his medications and denies any side effects new pain or discomfort. He has been more visible on the unit and appears less distressed and less casas. There were no major behavioral issues overnight. Diagnostic Results: r/o MDD r/o substance induced mood disorder polysubstance dependence adjustment disorder with depressed and anxious mood Medication Change: Yes (Ativan 2 mg TID decreased to 2 mg q12 . ) Medical Record Reviewed: Yes Mental Status Examination - Cognitive Function Orientation: Person, Place Memory: Intact Attention: WNL (some improvement) Concentration: Poor (some improvement) Association: WNL Fund of Knowledge: WNL - Mood Mood: Depressed (I feel little better), Anxious - Affect Affect: Constricted - Formal Thought Process Formal Thought Process: No Impairment - Suicidal Ideation Suicidal Ideation: No - Homicidal Ideation Homicidal Ideation: No Goal/Treatment Plan - Goal/Treatment Plan Need for Continued Stay: Remain at risks for inpatient hospitalization, Severe depression anxiety, Discharge may exacerbated symptoms, Severe functional impairment Progress Toward Problem(s) and Goals/Treatment Plan: * c/w current tx and plan * Vitals reviewed and noted below: Selected Entries 11/07/17 11/07/17 11/08/17 06:50 16:39 07:02 Temperature 97.8 F 97.6 F Pulse Rate 42 L 55 L 104 H Respiratory 20 20 Rate Blood Pressure 107/72 113/72 112/80 * No new lab results noted thus far today * Trazodone 100 mg HS initiated on November 07, 2017, increased to 150 mg HS for depression and off label for insomnia * Ativan 2 mg po TID decreased to 2 mg po q12 as vitals signs are stable. c/w Ativan 2 mg po at reduced frequency of qdaily PRN. Estimated Date of D/C: 11/10/17
[2017-11-09] MEDS: Multivitamin With Minerals Tab PO SCH (08:41)
--- NOTE | 2017-11-09 11:05 | PCM.PYCHPN ---
Psychiatric Progress Note - Psychiatric Progress Note Patient seen today, length of contact: 25 minutes Problems Identified/Issues Discussed: Patient is 36 yo male with reported h/o polysubstance abuse and dependence, h/o multiple detoxes, h/o psych admissions, most recent was at [facility] in 2016 who brought himself to the hospital for evaluation of depressive symptoms, possible suicidal ideation with the plan to jump in front of the train, in context of chronic drug use, social stress such losing his job and recent brake up with his girlfriend.. I have reviewed recent staff notes and I met with patient at bedside. He is groomed, calm, cooperative and well-oriented to month, year, location and circumstances. Patient denies any new concerns. Focus is good and he seems less stressed in general. Anxiety continues to be an issue and patient was forthcoming during our interview on Friday in that anxiety will likely always be an issue because he "loves xanax, it's my drug of choice". Thought process continues to be coherent and goal directed without evidence of derangement. To this extent patient continues to deny having any perceptual disturbance. Patient is compliant with his medications and denies any side effects new pain or discomfort. He has been more visible on the unit and appears less distressed and less casas. At times social and interactive. There were no major behavioral issues over the weekend. No withdrawal symptoms noted. Diagnostic Results: r/o MDD r/o substance induced mood disorder polysubstance dependence adjustment disorder with depressed and anxious mood Medication Change: Yes (Ativan 2 mg TID decreased to 2 mg q12 . ) Medical Record Reviewed: Yes Mental Status Examination - Cognitive Function Orientation: Person, Place Memory: Intact Attention: WNL (some improvement) Concentration: Poor (some improvement) Association: WNL Fund of Knowledge: WNL - Mood Mood: Depressed (I feel little better), Anxious - Affect Affect: Constricted - Formal Thought Process Formal Thought Process: No Impairment - Suicidal Ideation Suicidal Ideation: No - Homicidal Ideation Homicidal Ideation: No Goal/Treatment Plan - Goal/Treatment Plan Need for Continued Stay: Remain at risks for inpatient hospitalization, Severe depression anxiety, Discharge may exacerbated symptoms, Severe functional impairment Progress Toward Problem(s) and Goals/Treatment Plan: * c/w current tx and plan * Appreciate f/u by Dr. Vera/Dr. Triana on 11/07/17~recommended longer weaning course of benzos and neurontin 800 TID. Signed off. * Vitals reviewed and noted below: 11/08/17 11/08/17 11/09/17 07:02 16:00 07:07 Temperature 97.6 F 97.7 F Pulse Rate 104 H 50 L 92 H Respiratory 20 20 Rate Blood Pressure 112/80 96/62 L 109/76 * No new lab results noted thus far this weekend * Trazodone 100 mg HS initiated on November 09, 2017 for depression and off label for insomnia * Ativan 2 mg po TID decreased to 2 mg po q12 on 11/08/17 as vitals signs were stable. c/w Ativan 2 mg po at reduced frequency of qdaily PRN. Next taper planned for 11/10/17 per neurology recommendation of longer tapering course of benzos. Estimated Date of D/C: 11/10/17
[2017-11-10] MEDS: Multivitamin With Minerals Tab PO SCH (09:29)
--- NOTE | 2017-11-10 10:42 | PCM.PYCHPN ---
Psychiatric Progress Note - Psychiatric Progress Note Patient seen today, length of contact: 25 minutes Patient Chief Complaint: "better, feeling more ready to go home" Problems Identified/Issues Discussed: Patient is 36 yo male with reported h/o polysubstance abuse and dependence, h/o multiple detoxes, h/o psych admissions, most recent was at [facility] in 2016 who brought himself to the hospital for evaluation of depressive symptoms, possible suicidal ideation with the plan to jump in front of the train, in context of chronic drug use, social stress such losing his job and recent brake up with his girlfriend.. I have reviewed recent staff notes and I met with patient at bedside. He is groomed, calm, cooperative and well-oriented to month, year, location and circumstances. Patient denies any new concerns. Focus is good and he seems less stressed in general. Anxiety has been an issue and patient was forthcoming during our interview on Friday in that anxiety will likely always be an issue because he "loves xanax , it's my drug of choice". By Friday, November 10, patient reported improvement in anxiety, in that it was less distressing and overwhelming. Patient also reported that mood and energy levels are better, "I feel better than I have in a long time, I don't feel bad about myself". Affect is more related and friendly. Thought process continues to be coherent and goal directed without evidence of derangement. To this extent patient continues to deny having any perceptual disturbance. Patient is compliant with his medications and denies any side effects new pain or discomfort. Sleep was restless last night. He has been more visible on the unit and appears less distressed and less casas. More periods of social and interactive behaviors. There were no major behavioral issues over the weekend. No withdrawal symptoms noted. Diagnostic Results: r/o MDD r/o substance induced mood disorder polysubstance dependence adjustment disorder with depressed and anxious mood Medication Change: Yes (Ativan 2 mg TID decreased to 2 mg q12 . ) Medical Record Reviewed: Yes Mental Status Examination - Cognitive Function Orientation: Person, Place, Situation Memory: Intact Attention: WNL (some improvement) Concentration: WNL (some improvement) Association: WNL Fund of Knowledge: WNL - Mood Mood: Depressed ( "I feel better than I have in a long time, I don't feel bad about myself". ), Anxious - Affect Affect: Constricted (Affect is more related and friendly. ) - Formal Thought Process Formal Thought Process: No Impairment - Suicidal Ideation Suicidal Ideation: No - Homicidal Ideation Homicidal Ideation: No Goal/Treatment Plan - Goal/Treatment Plan Need for Continued Stay: Remain at risks for inpatient hospitalization, Severe depression anxiety, Discharge may exacerbated symptoms, Severe functional impairment Progress Toward Problem(s) and Goals/Treatment Plan: * c/w current tx and plan * Appreciate f/u by Dr. Vera/Dr. Triana on 11/07/17~recommended longer weaning course of benzos and neurontin 800 TID. Signed off. * Vitals reviewed and noted below: Selected Entries 11/10/17 06:36 Temperature 97.6 F Pulse Rate 78 Respiratory 20 Rate Blood Pressure 115/72 * No new lab results noted this weekend * Trazodone 100 mg HS initiated on November 09, 2017 for depression and off label for insomnia, increased on November 10 to help, off-label with insomnia. * Will taper ativan every 2 days because neurology recommended longer tapering course of benzos due to history of seizures. Ativan 2 mg po TID decreased to 2 mg po q12 on 11/08/17 and then again to 2 mg po qhs on 11/10/17. Vitals signs continue to be stable. * c/w Ativan 2 mg po at reduced frequency of qdaily PRN Estimated Date of D/C: 11/10/17
[2017-11-10 13:10] VITALS: TEMP 98
[2017-11-10 15:41] VITALS: BP 135/87; PULSE 67
[2017-11-11] MEDS: Multivitamin With Minerals Tab PO SCH (10:06)
--- NOTE | 2017-11-11 15:13 | PCM.PYCHDC ---
Mental Status Examination - Mental Status Examination Orientation: Person, Place, Situation, Time Memory: Intact Mood: Neutral Affect: Constricted (but reactive mood congruent) Speech: Appropriate Attention: WNL Concentration: WNL Association: WNL Fund of Knowledge: WNL Formal Thought Process: No Impairment Description of patient's judgement and insight: Pt has improved insight into mental and medical illness, pt was compliant with medications and unit rules and regulations, pt was going to groups, was calm, cooperative, socially appropriate, no behavioral incidents, no agitation, no aggression. Psychotic Thoughts and Behaviors: Pt denied v/a/t hallucinations, denied paranoid ideations, pt does not appear to be psychotic, and thought process is goal directed. Suicidal Ideation: No Current Homicidal Ideation?: No Plan: pt adamantly denied thoughts of harming self or others denied intent or plan. Discharge Summary - Discharge Note Reason for Hospitalization: pt was admitted for evaluation of depression/possible suicidal ideation which were related to intoxication and social issues. Psychiatric History (includes Medical, Family, Personal Hx): see HPI Laboratory Data: 11/02/17 17:34 11/02/17 17:34 Lab Results 11/05/17 06:00: TSH 3rd Generation 0.23 L 11/04/17 08:00: Free T4 1.16, TSH 3rd Generation 0.16 L 11/04/17 07:00: HIV 1&2 Ag/Ab, 4th Gen Nonreactive 11/03/17 19:00: TSH 3rd Generation 0.24 L 11/03/17 07:00: RPR Nonreactive 11/03/17 07:00: TSH 3rd Generation 0.68 11/03/17 07:00: Fasting Glucose 86, Triglycerides 180 H, Cholesterol 206 H, LDL Cholesterol Direct 126, HDL Cholesterol 33 11/02/17 19:35: Urine Opiates Screen Positive H, Urine Methadone Screen Negative , Ur Barbiturates Screen Negative, Ur Phencyclidine Scrn Negative, Ur Amphetamines Screen Positive H, U Benzodiazepines Scrn Positive, U Oth Cocaine Metabols Negative, U Cannabinoids Screen Negative 11/02/17 19:35: Urine Color Yellow, Urine Appearance Clear, Urine pH 6.0, Ur Specific Zirconia >= 1.030, Urine Protein Trace H, Urine Glucose (UA) Negative, Urine Ketones Trace H, Urine Blood Negative, Urine Nitrate Negative, Urine Bilirubin Negative, Urine Urobilinogen 1.0 H, Ur Leukocyte Esterase Negative, Urine RBC 0 - 2, Urine WBC 0 - 2, Ur Epithelial Cells 0 - 2 11/02/17 17:34: Alcohol, Quantitative < 10 11/02/17 17:34: Salicylates < 1 L, Acetaminophen < 10.0 L 11/02/17 17:34: Sodium 143, Potassium 3.6, Chloride 103, Carbon Dioxide 28, Anion Gap 16, BUN 16, Creatinine 0.8, Est GFR ( Amer) > 60, Est GFR (Non- Af Amer) > 60, Random Glucose 110, Calcium 9.2, Total Bilirubin 0.8, AST 51, ALT 86 H, Alkaline Phosphatase 73, Total Protein 7.5, Albumin 4.0, Globulin 3.5 , Albumin/Globulin Ratio 1.1 11/02/17 17:34: WBC 4.5, RBC 4.72, Hgb 13.9 L, Hct 38.6 L, MCV 81.8, MCH 29.4, MCHC 36.0, RDW 13.3, Plt Count 197, MPV 9.0, Gran % 53.4, Lymph % (Auto) 36.1 H , Marin % (Auto) 9.4 H, Eos % (Auto) 0.7 L, Baso % (Auto) 0.4, Gran # 2.40, Lymph # (Auto) 1.6, Marin # (Auto) 0.4, Eos # (Auto) 0.0, Baso # (Auto) 0.02 Vital Signs Temp Pulse Resp BP Pulse Ox 11/10/17 15:40 67 135/87 11/10/17 13:04 98 F 74 20 120/80 11/10/17 06:36 97.6 F 78 20 115/72 11/09/17 16:40 64 123/78 11/09/17 07:07 97.7 F 92 H 20 109/76 11/08/17 16:00 50 L 96/62 L 11/08/17 07:02 97.6 F 104 H 20 112/80 11/07/17 16:39 55 L 113/72 11/07/17 06:50 97.8 F 42 L 20 107/72 11/06/17 22:00 58 L 126/78 11/06/17 16:00 43 L 114/74 11/06/17 07:12 98.1 F 49 L 20 123/75 11/05/17 16:12 72 123/67 11/05/17 07:28 97.9 F 72 20 127/78 11/04/17 22:00 97.2 F L 100 H 20 118/88 11/04/17 16:00 68 112/64 11/04/17 06:56 97.9 F 51 L 22 100/51 L 11/03/17 23:30 61 20 127/75 100 11/03/17 21:40 98.7 F 46 L 20 96/56 L 100 11/03/17 16:00 46 L 106/63 11/03/17 13:45 97.6 F 49 L 17 109/69 11/03/17 10:45 97.5 F L 60 18 109/60 11/03/17 09:45 -97.5 F L 60 18 100/60 11/03/17 09:15 97.6 F 53 L 16 95/55 L 11/02/17 22:31 19 11/02/17 20:54 98.2 F 62 18 112/61 100 11/02/17 18:30 68 20 117/62 99 11/02/17 16:44 98.6 F 82 16 118/80 99 Consultations:: List each consultation separately and include: 1. Reason for request. 2. Findings. 3. Follow-up Consultations: medical consult appreciated, medical team suggested cardiology consult for bradycardia cardiology consult appreciated, see notes Neurology consult was called for possible seizures, suggested to increase neurontin and wean benzos slowly, which was done see notes for more detailed information Summary of Hospital Course include:: 1. Description of specific treatment plan utilized for patients during their course of treatmen. 2. Summarize the time- course for resolution of acute symptoms and/or regressed behaviors. 3. Describe issues identified and worked on during hospitalization. 4. Describe medication utilized. 5. Describe medical problems identified and treated. 6. Reassessment of suicide risk Summary of Hospital Course: shortly pt is 36yo male with reported h/o polysubstance abuse and dependence, h/ o multiple detoxes, h/o psych admissions, most recent was at [facility] in 2016, pt brought himself to the hospital for evaluation of depressive symptoms, possible suicidal ideation with the plan to jump in front of the train, in context of constant use drugs, social stress such losing his job and recent brake up with his girlfriend. pt reported that he had a plan to jump in front of the train, pt requires further evaluation and stabilization, observation. initially pt was seen in his room, pt presented to be drowsy, refused to participate in treatment team meeting, acceptable ADLs, poor hygiene. pt seems to be disengaged, talking with his eyes closed, pt said he was using about 15bags of heroin a day IV, and at this moment he is withdrawing. pt said he is not using anything else, but as per labs, UDS was positive for benzos, stimulants. pt is poor and unreliable historian, did not want to participate in interview. as per report pt was depressed after his girlfriend left him and he lost his job. long h/o opioid addiction for 20years, pt was attending suboxone clinic. as per report pt has h/o using alcohol, benzos, stimulants. pt has some fresh cuts on his forearm, aproximately 25-30, on the dorsal aspect , pt said that he did not try to kill self, but wanted to harm self. pt said he had no h/o admissions to the psych unit, but as per record pt was admitted to psych unit and detox units in 2016 and 2014. pt denies any medical issues, but pt is bradycardic, low blood pressure. Family h/o: unknown Social h/o: see above. pt smokes about a pack a day, pt was not receptive to education, nicotine patch provided. pt denied v/at/ hallucinations, denied paranoid ideation. as per previous record pt was agitated and aggressive in [facility] in 2017, punched the wall, was d/c AMA. 11/02/17 17:34 11/02/17 17:34 Lab Results 11/03/17 07:00: TSH 3rd Generation 0.68 11/03/17 07:00: Fasting Glucose 86, Triglycerides 180 H, Cholesterol 206 H, LDL Cholesterol Direct 126, HDL Cholesterol 33 11/02/17 19:35: Urine Opiates Screen Positive H, Urine Methadone Screen Negative , Ur Barbiturates Screen Negative, Ur Phencyclidine Scrn Negative, Ur Amphetamines Screen Positive H, U Benzodiazepines Scrn Positive, U Oth Cocaine Metabols Negative, U Cannabinoids Screen Negative 11/02/17 19:35: Urine Color Yellow, Urine Appearance Clear, Urine pH 6.0, Ur Specific Zirconia >= 1.030, Urine Protein Trace H, Urine Glucose (UA) Negative, Urine Ketones Trace H, Urine Blood Negative, Urine Nitrate Negative, Urine Bilirubin Negative, Urine Urobilinogen 1.0 H, Ur Leukocyte Esterase Negative, Urine RBC 0 - 2, Urine WBC 0 - 2, Ur Epithelial Cells 0 - 2 11/02/17 17:34: Alcohol, Quantitative < 10 11/02/17 17:34: Salicylates < 1 L, Acetaminophen < 10.0 L 11/02/17 17:34: Sodium 143, Potassium 3.6, Chloride 103, Carbon Dioxide 28, Anion Gap 16, BUN 16, Creatinine 0.8, Est GFR ( Amer) > 60, Est GFR (Non- Af Amer) > 60, Random Glucose 110, Calcium 9.2, Total Bilirubin 0.8, AST 51, ALT 86 H, Alkaline Phosphatase 73, Total Protein 7.5, Albumin 4.0, Globulin 3.5 , Albumin/Globulin Ratio 1.1 11/02/17 17:34: WBC 4.5, RBC 4.72, Hgb 13.9 L, Hct 38.6 L, MCV 81.8, MCH 29.4, MCHC 36.0, RDW 13.3, Plt Count 197, MPV 9.0, Gran % 53.4, Lymph % (Auto) 36.1 H , Marin % (Auto) 9.4 H, Eos % (Auto) 0.7 L, Baso % (Auto) 0.4, Gran # 2.40, Lymph # (Auto) 1.6, Marin # (Auto) 0.4, Eos # (Auto) 0.0, Baso # (Auto) 0.02 Vital Signs Temp Pulse Resp BP Pulse Ox 11/03/17 13:45 97.6 F 49 L 17 109/69 11/03/17 10:45 97.5 F L 60 18 109/60 11/03/17 09:45 -97.5 F L 60 18 100/60 11/03/17 09:15 97.6 F 53 L 16 95/55 L 11/02/17 22:31 19 11/02/17 20:54 98.2 F 62 18 112/61 100 11/02/17 18:30 68 20 117/62 99 11/02/17 16:44 98.6 F 82 16 118/80 99 over the course of this hospitalization patient was stabilized on the following medications: ativan as tapered, patient was discharged on 1 mg twice a day for another 2 days then 1 mg at the nighttime for another 2 days and then discontinue Seroquel 50 mg at the morning time in 200 mgat the nighttime remeron 45mg po hs for depression and insomnia trazodone 150 mg at the nighttime for depression and insomnia neurontin 800mg po tid for mood stabilization multivitamies patient tolerated medications well, no side effects observed or reported, withdrawals much better, patient did not have any physical signs off opioids or benzodiazepines Karen's. Over the course of this hospitalization patient improved significantly, depression improved, anxiety is much better, no psychotic symptoms, patient reported to have good appetite and sleep, patient has future oriented plans to go back to work. Patient wants to be followed up with some Suboxone clinic. patient was seen today at the treatment team meeting, discharged to more than 45 minutes. Overall pt improved significantly, pt's affect became brighter, pt was less depressed, has realistic future oriented plans, pt also does not appear to be psychotic, or anxious, pt was socially appropriate, no behavioral issues, pts insight improved as well and soon pt deemed to be ready for discharge. At the time of the discharge pt denied been depressed, denied thoughts of harming self or others, denied psychotic symptoms, and pt does not appeared to be psychotic, denied been anxious, pt is not in imminent danger to self or others, will be following up at Suboxone clinic, information about follow up appointment, time and address provided to the pt, it is patient responsibility to follow up with outpatient clinic, PMD as well as specialists (see note for more detailed information). In case pt will need to obtain results of studies pending at discharge pt was provided with contact information of Psychiatric Inpatient unit [phone] as well as Medical Record Department [phone]. Nicotine patch was offered Naltrexone treatment, is not indicated because patient will be followed up with Suboxone clinic Counseling about smoking and alcohol cessation provided AA meetings as well as smoking cessation treatment program information was provided by the pt was provided with prescriptions for all of medications (please see medication reconciliation form) Pt was educated about safety plan in case of worsening of symptoms or in case of suicidal or homicidal ideation call 911 or go to the nearest ER, also was educated to take meds as prescribed and stay away from drugs, pt verbalized understanding. - Diagnosis (1) Polysubstance abuse Status: Chronic Priority: High (2) Depression Status: Chronic Priority: Medium - Final Diagnosis (DSM 5) Condition upon Discharge: IMPROVED Disposition: HOME/ ROUTINE Follow-up Treatment Plan: At the time of the discharge pt denied been depressed, denied thoughts of harming self or others, denied psychotic symptoms, and pt does not appeared to be psychotic, denied been anxious, pt is not in imminent danger to self or others, will be following up at Suboxone clinic, information about follow up appointment, time and address provided to the pt, it is patient responsibility to follow up with outpatient clinic, PMD as well as specialists (see note for more detailed information). In case pt will need to obtain results of studies pending at discharge pt was provided with contact information of Psychiatric Inpatient unit [phone] as well as Medical Record Department [phone]. Nicotine patch was offered Naltrexone treatment, is not indicated because patient will be followed up with Suboxone clinic Counseling about smoking and alcohol cessation provided AA meetings as well as smoking cessation treatment program information was provided by the pt was provided with prescriptions for all of medications (please see medication reconciliation form) Pt was educated about safety plan in case of worsening of symptoms or in case of suicidal or homicidal ideation call 911 or go to the nearest ER, also was educated to take meds as prescribed and stay away from drugs, pt verbalized understanding. Prescriptions/Medication Reconciliation: Gabapentin [Neurontin] 800 mg PO TID #45 tab RX: LORazepam [Ativan] 1 mg PO AMHS #6 tab Mirtazapine [Remeron Soltab] 45 mg PO HS #15 odt RX: Multimineral/Multivitamin [Therapeutic-M Tab] 1 tab PO 0800 #14 tab RX: Nicotine 21 mg/24 hr [Nicoderm Cq] 1 patch TD DAILY #14 patch Quetiapine Fumarate [Seroquel] 200 mg PO HS #14 tab Quetiapine Fumarate [Seroquel] 50 mg PO DAILY #14 tablet RX: Trazodone HCl 150 mg PO HS #14 tablet - Smoking Cessation Smoking Cessation Medication prescribed: Yes - Antipsychotic Medications Pt discharged on 2 or more routine antipsychotic medications: No
== END 2017-11-11 14:50 | disposition home or self-care (01) | DRG 427 ==
LOC: ED 16:36 → ERH 18:59 → PSYC 21:01
PROVIDERS: ADMIT Psychiatry & Neurology Psychiatry; ATTEND Psychiatry & Neurology Psychiatry
DX: F43.23 Adjustment disorder with mixed anxiety and depressed mood (principal); F11.20 Opioid dependence, uncomplicated; B19.20 Unspecified viral hepatitis C without hepatic coma; F13.239 Sedative, hypnotic or anxiolytic dependence with withdrawal, unspecified; F17.210 Nicotine dependence, cigarettes, uncomplicated; I10 Essential (primary) hypertension; F10.10 Alcohol abuse, uncomplicated; R00.1 Bradycardia, unspecified; F43.10 Post-traumatic stress disorder, unspecified; M19.90 Unspecified osteoarthritis, unspecified site; K59.00 Constipation, unspecified; J45.909 Unspecified asthma, uncomplicated; G40.909 Epilepsy, unspecified, not intractable, without status epilepticus; G47.00 Insomnia, unspecified; R19.7 Diarrhea, unspecified; R45.851 Suicidal ideations; S51.819A Laceration without foreign body of unspecified forearm, initial encounter; X78.9XXA Intentional self-harm by unspecified sharp object, initial encounter

== ENCOUNTER 2017-12-22 19:42 | Inpatient (IN) | payer MEDICAID, OTHER ==
[2017-12-22 19:48] VITALS: BMI 24.2
--- NOTE | 2017-12-22 20:08 | ED PDOC ---
Arrival/HPI - General Historian: Patient - General Chief Complaint: Psychiatric Evaluation Time Seen by Provider: 12/22/17 19:44 - History of Present Illness Narrative History of Present Illness (Text): 12/22/17 20:04 37yo male with history of depression present with complaint of depression and suicidal attempt. States he took unknown amount of Tylenol PM with Vodka this morning. States he was given ??something to drink by his mother and he vomited s /p. He states he is not on any antidepressant. He admitted to taking Cocaine. States the last time he took Cocaine was this morning. He denies hallucination, HI, any somatic complaint. (Malcolm,Silvia A) Past Medical History - Provider Review Nursing Documentation Reviewed: Yes - Infectious Disease Hx of Infectious Diseases: None - Tetanus Immunization Tetanus Immunization: Unknown - Cardiac Hx Hypertension: Yes - Pulmonary Hx Asthma: Yes - Neurological Hx Alzheimer's Disease: No Hx Dementia: No Hx Migraine: No Hx Multiple Sclerosis: No Hx Parkinson's Disease: No Hx Seizures: No Hx Transient Ischemic Attacks (TIA): No - HEENT Hx HEENT Disorder: No Hx Cataracts: No Hx Deafness: No Hx Difficulty Chewing: No Hx Epistaxis: No Hx Glaucoma: No Hx Macular Degeneration: No - Renal Hx Renal Disorder: No Hx Kidney Stones: No - Endocrine/Metabolic Hx Hyperthyroidism: No Hx Hypothyroidism: No - Hematological/Oncological Hx Anemia: No Hx Sickle Cell Disease: No - Integumentary Hx Dermatological Disorder: No Hx Basal Cell Carcinoma: No Hx Baxter: No Hx Cellulitis: No Hx Eczema: No Hx Melanoma: No Hx Psoriasis: No Hx Squamous Cell Carcinoma: No - Musculoskeletal/Rheumatological Hx Arthritis: Yes - Gastrointestinal Hx Crohn's Disease: No Hx Diverticulitis: No Hx Gall Bladder Disease: No Hx Gastritis: No Hx Pancreatitis: No - Genitourinary/Gynecological Hx Sexually Transmitted Diseases: No - Psychiatric Hx Depression: Yes Hx Substance Use: Yes - Past Surgical History Past Surgical History: Non-Contributing - Surgical History Hx Appendectomy: No Hx Carotid Endarterectomy: No Hx Cholecystectomy: No Hx Coronary Artery Bypass Graft: No Hx Coronary Stent: No Hx Tonsillectomy: No - Anesthesia Hx Anesthesia: No - Suicidal Assessment Feels Threatened In Home Enviroment: No Family/Social History - Physician Review Nursing Documentation Reviewed: Yes Family/Social History: Unknown Family HX Smoking Status: Heavy Smoker > 10 Cigarettes Daily Hx Alcohol Use: Yes Hx Substance Use: Yes Substance used: will not admit to type of drug Hx Substance Use Treatment: Yes Allergies/Home Meds Allergies/Adverse Reactions: Allergies No Known Allergies Allergy (Verified 12/23/17 06:26) Review of Systems - Physician Review All systems were reviewed & negative as marked: Yes - Review of Systems Constitutional: Normal Eyes: Normal ENT: Normal Respiratory: Normal Cardiovascular: Normal Gastrointestinal: Normal Genitourinary Male: Normal Musculoskeletal: Normal Skin: Normal Neurological: Normal Endocrine: Normal Hemo/Lymphatic: Normal Psychiatric: Depression, Suicidal Ideation Physical Exam Vital Signs Reviewed: Yes Temperature: Afebrile Blood Pressure: Normal Pulse: Regular Respiratory Rate: Normal Appearance: Positive for: Well-Appearing, Non-Toxic, Comfortable Pain Distress: None Mental Status: Positive for: Alert and Oriented X 3 - Systems Exam Head: Present: Atraumatic, Normocephalic Pupils: Present: PERRL Extroacular Muscles: Present: EOMI Conjunctiva: Present: Normal Mouth: Present: Moist Mucous Membranes Neck: Present: Normal Range of Motion Respiratory/Chest: Present: Clear to Auscultation, Good Air Exchange. No: Respiratory Distress, Accessory Muscle Use Cardiovascular: Present: Regular Rate and Rhythm, Normal S1, S2. No: Murmurs Abdomen: No: Tenderness, Distention, Peritoneal Signs Back: Present: Normal Inspection Upper Extremity: Present: Normal Inspection. No: Cyanosis, Edema Lower Extremity: Present: Normal Inspection. No: Edema Neurological: Present: GCS=15, CN II-XII Intact, Speech Normal Skin: Present: Warm, Dry, Normal Color. No: Rashes Psychiatric: Present: Alert, Oriented x 3, Normal Insight, Normal Concentration , Depressed Mood Vital Signs Temp Pulse Resp BP Pulse Ox 12/23/17 02:14 85 136/73 12/23/17 02:00 98.4 F 85 20 136/73 96 12/23/17 01:50 98 12/22/17 19:46 98.2 F 96 H 18 136/85 99 Medical Decision Making ED Course and Treatment: 12/22/17 22:55 Pt in emergency department for stated history. He was AAO x3 in emergency department. Hemodynamically stable. UDS + opiate, benzo and THC. EKG NSR @87bpm. NSTEMI PT was medically cleared for psychiatric evaluation. He was seen in emergency department by ZEFERINO Garcia. she DC with the psychiatrist 12/23/17 00:13 PT was admitted to Dr. Mark's service for depression (Diru,Happiness A) EKG NSR 87 bpm, no ST elevations. (NSTEMI written in error.) (Duran Cabrales) - Lab Interpretations Lab Results: 12/22/17 20:32 12/22/17 20:32 Lab Results 12/22/17 20:39: Urine Opiates Screen Positive H, Urine Methadone Screen Negative , Ur Barbiturates Screen Negative, Ur Phencyclidine Scrn Negative, Ur Amphetamines Screen Negative, U Benzodiazepines Scrn Positive H, U Oth Cocaine Metabols Negative, U Cannabinoids Screen Positive H 12/22/17 20:39: Urine Color Yellow, Urine Appearance Clear, Urine pH 6.0, Ur Specific [place] >= 1.030, Urine Protein Trace H, Urine Glucose (UA) Negative, Urine Ketones Negative, Urine Blood Negative, Urine Nitrate Negative, Urine Bilirubin Negative, Urine Urobilinogen 4.0 H, Ur Leukocyte Esterase Negative, Urine RBC 0 - 2, Urine WBC 0 - 2, Ur Epithelial Cells None, Calcium Oxalate Crystal Mod, Urine Bacteria Small 12/22/17 20:32: Alcohol, Quantitative < 10 12/22/17 20:32: Salicylates < 1 L, Acetaminophen < 10.0 L 12/22/17 20:32: Sodium 142, Potassium 3.6, Chloride 99, Carbon Dioxide 31, Anion Gap 15, BUN 13, Creatinine 0.6 L, Est GFR ( Amer) > 60, Est GFR ( Non-Af Amer) > 60, Random Glucose 96, Calcium 9.6, Magnesium 1.8, Total Bilirubin 0.6, AST 39, ALT 85 H, Alkaline Phosphatase 76, Total Protein 7.4, Albumin 3.9, Globulin 3.5, Albumin/Globulin Ratio 1.1 12/22/17 20:32: WBC 6.2 D, RBC 4.70, Hgb 13.8 L, Hct 38.7 L, MCV 82.3, MCH 29.4 , MCHC 35.7, RDW 12.7, Plt Count 229, MPV 8.4, Gran % 61.9, Lymph % (Auto) 30.5 , Cocke % (Auto) 6.9 H, Eos % (Auto) 0.5 L, Baso % (Auto) 0.2, Gran # 3.84, Lymph # (Auto) 1.9, Cocke # (Auto) 0.4, Eos # (Auto) 0.0, Baso # (Auto) 0.01 - Medication Orders Current Medication Orders: Acetaminophen (Tylenol 325mg Tab) 650 mg PO Q6H PRN PRN Reason: Pain, Mild (1-3) Al Hydrox/Mg Hydrox/Simethicone (Maalox Plus 30 Ml) 30 ml PO DAILY PRN PRN Reason: Upset Stomach Clonidine HCl (Catapres) 0.1 mg PO Q12H PRN PRN Reason: Opiate Withdrawal Last Admin: 12/23/17 21:51 Dose: 0.1 mg MAR Pulse and Blood Pressure Document 12/23/17 21:51 DC (Rec: 12/23/17 21:52 DC [id number]) Pulse Pulse Rate (60-90) 63 Blood Pressure Blood Pressure (100/60-150/90) 106/64 Gabapentin (Neurontin) 400 mg PO TID [facility] PRN Reason: Protocol Last Admin: 12/23/17 15:32 Dose: Not Given Non-Admin Reason: Patient Asleep Behavioural Document 12/23/17 15:32 ABO (Rec: 12/23/17 15:32 ABO [id number]) Maintenance Maintenance Dose Yes Haloperidol (Haldol) 5 mg PO Q6H PRN; Protocol PRN Reason: Agitation Haloperidol Lactate (Haldol) 5 mg IM Q6H PRN; Protocol PRN Reason: Severe Agitation Lorazepam (Ativan) 2 mg PO Q4H [facility] PRN Reason: Protocol Last Admin: 12/24/17 06:22 Dose: 2 mg Behavioural Document 12/24/17 06:22 DC (Rec: 12/24/17 06:22 DC [id number]) Maintenance Maintenance Dose Yes Lorazepam (Ativan) 2 mg PO Q6H PRN; Protocol PRN Reason: Agitation Lorazepam (Ativan) 2 mg IM Q6H PRN; Protocol PRN Reason: Severe Agitation Magnesium Hydroxide (Milk Of Magnesia) 30 ml PO DAILY PRN PRN Reason: Constipation Mirtazapine (Remeron) 15 mg PO HS [facility] Last Admin: 12/23/17 21:51 Dose: 15 mg Multivitamins/Minerals (Therapeutic-M Tab) 1 tab PO 0800 NAYELI Last Admin: 12/23/17 10:17 Dose: Not Given Non-Admin Reason: Patient Asleep Nicotine (Nicoderm Cq) 1 patch TD DAILY NAYELI Ondansetron HCl (Zofran Odt) 4 mg PO Q8H PRN PRN Reason: Nausea/Vomiting Quetiapine Fumarate (Seroquel) 100 mg PO HS NAYELI PRN Reason: Protocol Last Admin: 12/23/17 21:50 Dose: 100 mg Behavioural Document 12/23/17 21:50 DC (Rec: 12/23/17 21:51 DC [id number]) Maintenance Maintenance Dose Yes Re-Assess: Reassess Psych Meds Document 12/23/17 22:50 DC (Rec: 12/23/17 23:33 DC [id number]) Reassess Psych Med Effective Quetiapine Fumarate (Seroquel) 50 mg PO DAILY NAYELI PRN Reason: Protocol Last Admin: 12/23/17 10:14 Dose: Not Given Non-Admin Reason: Patient Asleep Behavioural Document 12/23/17 10:14 ABO (Rec: 12/23/17 10:16 ABO [id number]) Maintenance Maintenance Dose Yes Tramadol HCl (Ultram) 50 mg PO TID NAYELI Trazodone HCl (Desyrel) 50 mg PO HS [facility] Last Admin: 12/23/17 21:51 Dose: 50 mg Disposition/Present on Arrival - Present on Arrival Any Indicators Present on Arrival: No History of DVT/PE: No History of Uncontrolled Diabetes: No Urinary Catheter: No History of Decub. Ulcer: No History Surgical Site Infection Following: None - Disposition Have Diagnosis and Disposition been Completed?: Yes Disposition Time: 23:50 Patient Plan: Admission - Disposition Diagnosis: Drug abuse, Polysubstance abuse, Depressive disorder, Suicidal ideation Disposition: HOSPITALIZED Patient Problems: Current Active Problems Problem Status Onset Depressive disorder Acute Drug abuse Acute MDD (major depressive disorder) Acute Suicidal ideation Acute Polysubstance abuse Chronic Condition: STABLE
[2017-12-22 20:54] LABS: ACETAMINOPHEN < 10.0 ug/ml (10.0-20.0); SALICYLATE < 1 mg/dL (2.0-20.0)
[2017-12-22 20:55] LABS: BASO # 0.01 K/mm3 (0.0-2.0); BASO % 0.2 % (0.0-3.0); EOS % 0.5 % (1.5-5.0); GRAN # 3.84 (1.4-6.5); GRAN % 61.9 % (50.0-68.0); HEMOGLOBIN 13.8 g/dL (14.0-18.0); LYMPH # 1.9 (1.2-3.4); LYMPH % 30.5 % (22.0-35.0); MEAN CELL VOLUME 82.3 fl (80.0-105.0); MEAN CORPUSCULAR HEMOGLOBIN 29.4 pg (25.0-35.0); MEAN CORPUSCULAR HGB CONC 35.7 g/dl (31.0-37.0); MEAN PLATELET VOLUME 8.4 fl (7.0-11.0); MONO # 0.4 (0.1-0.6); MONO % 6.9 % (1.0-6.0); RBC 4.7 10^6/uL (3.5-6.1); RED CELL DISTRIBUTION WIDTH 12.7 % (11.5-14.5); WHITE BLOOD COUNT 6.2 10^3/ul (4.5-11.0)
[2017-12-22 20:56] LABS: ALB/GLOB RATIO 1.1 (1.1-1.8); ALBUMIN 3.9 g/dL (3.0-4.8); ALT/SGPT 85 U/L (7-56); AST/SGOT 39 U/L (17-59); BLOOD UREA NITROGEN 13 mg/dL (7-21); CALCIUM 9.6 mg/dL (8.4-10.5); GFR AFRICAN-AMERICAN > 60; GFR NON-AFRICAN AMERICAN > 60
[2017-12-22 21:07] LABS: URINE BILIRUBIN NEGATIVE (NEGATIVE); URINE BLOOD NEGATIVE (NEGATIVE); URINE GLUCOSE (UA) NEGATIVE (NEGATIVE); URINE LEUKOCYTE ESTERASE NEGATIVE Leu/uL (NEGATIVE); URINE PROTEIN TRACE mg/dL (<30 mg/dL)
[2017-12-22 21:09] LABS: URINE APPEARANCE CLEAR (CLEAR); URINE COLOR YELLOW (YELLOW)
[2017-12-22 21:28] LABS: BARBITURATES, UR NEGATIVE (NEGATIVE); BENZODIAZEPINES, UR POSITIVE (NEGATIVE); OPIATES, UR POSITIVE (NEGATIVE); PHENCYCLIDINE, UR NEGATIVE (NEGATIVE)
[2017-12-22 22:11] LABS: URINE RBC 0 - 2 /hpf (0-2); URINE WBC 0 - 2 /hpf (0-6)
[2017-12-22 22:13] LABS: URINE BACTERIA SMALL (NEG); URINE CALCIUM OXALATE CRYSTALS MOD /hpf
[2017-12-23] MEDS ORDERED: Magnesium Hydroxide Susp 30 ml UD PO PRN (02:51)
[2017-12-23] MEDS ORDERED: Alum-Mag Hydrox-Simethicone Susp (30 mL) PO PRN (02:51)
--- NOTE | 2017-12-23 04:33 | PCM.BM ---
<JonathanGabriel - Last Filed: 12/23/17 04:29> Treatment Plan Problems - Problems identified on initial assessmt Medication Nonadherence Date Initiated: 12/23/17 Time Initiated: 02:00 Assessment reference: NA Status: Active Priority: 1 Ineffective Coping Date Initiated: 12/23/17 Time Initiated: 02:00 Assessment reference: NA Status: Active Priority: 2 Feelings of Worthlessness Date Initiated: 12/23/17 Time Initiated: 02:00 Assessment reference: NA Status: Active Priority: 3 Hopelessness/Helplessness Date Initiated: 12/23/17 Time Initiated: 02:00 Assessment reference: NA Status: Active Priority: 4 Treatment assets and liabiliti Patient Assests: cooperative, self-reliant, ADL independent, good past tx response, cognitively intact, good interpersonal skills Patient Liabilities: live alone, substance abuse - Milieu Protocol Maintain good personal hygiene: daily Encourage regular showers, every shift Remind patient to perform daily oral care, every shift Assist patient to perform ADL's Maintain personal safety: every shift Educate patient to report safety concerns to staff, every shift Monitor environment for contraband/sharps Medication safety: Monitor for expected outcome, potential side effects: every shift, Assess barriers to learning: every shift, Assess readiness for medication education: every shift Family Contact Family involvement: Family/SO is involved Family contact: Patient agrees to contact - Goals for Treatment Patient goals for treatment: Current goal for admission is, "to get off this stuff so I can go into a program. Also, so I can stop wanting to hurt myself." Discharge/Continuing Care - Education Needs Education Needs: Patient Medication, Patient Diagnosis/Disease Process, Patient Coping Skills, Patient Anger Management skills, Patient Placement options, Patient Community resources, Patient Activities of Daily Living, Patient Pain, Patient Nutrition, Patient Uses of Medical Equipment, Patient Health Practices/ Safety, Patient Personal Hygiene/Grooming, Patient Aftercare Safety Plan - Discharge Discharge Criteria: Tolerates medication w/o severe side effects, Free of Suicidal thoughts <Deedee Concepcion - Last Filed: 12/23/17 14:29> - Diagnosis (1) MDD (major depressive disorder) Status: Acute Interventions: 12/23/17 14:29 Psychoeducation Psychopharmacology/adjustment of medications as needed/ monitoring possible side effects Evaluate pt on daily basis Compliance with medications and follow up appointments Suicide and homicide risk assessment and prevention Relapse prevention Reduction of symptoms Improve functional status Family involvement As outpatient: cognitive behavioral therapy (2) Polysubstance (including opioids) dependence with physiol dependence Status: Acute Interventions: 12/23/17 14:30 Monitoring withdrawal symptoms Medical detoxification Pharmacotherapy for alcohol/benzos/opioid dependence Maintaining sobriety Relapse prevention Possible rehabilitation Motivational interviewing 12-step programs: AA meetings <Yanelis So - Last Filed: 12/24/17 15:52> Family Contact Family involvement: Family/SO is involved Family contact: Patient agrees to contact Family contact name: Judie(mother)[phone] Family contacted how many times per week?: 2 <Odette Negrete - Last Filed: 12/29/17 15:50>
[2017-12-23 05:38] VITALS: O2SAT 96
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
--- NOTE | 2017-12-23 08:37 | RAD ---
Date of service: 12/23/2017 HISTORY: PES COMPARISON: 11/02/2017 FINDINGS: LUNGS: No active pulmonary disease. PLEURA: No significant pleural effusion identified, no pneumothorax apparent. CARDIOVASCULAR: Normal. OSSEOUS STRUCTURES: No significant abnormalities. VISUALIZED UPPER ABDOMEN: Normal. OTHER FINDINGS: None. IMPRESSION: No active disease.
[2017-12-23] MEDS: Multivitamin With Minerals Tab PO SCH (10:17)
--- NOTE | 2017-12-23 16:52 | CARD ---
APPROVED REPORT Date of service: 12/22/2017 EKG Measurement Heart [id number] <Conclusion> Normal sinus rhythm Minimal voltage criteria for LVH, may be normal variant Possible Lateral infarct, age undetermined Inferior infarct, age undetermined Abnormal ECG
[2017-12-24] MEDS: Multivitamin With Minerals Tab PO SCH (08:23)
--- NOTE | 2017-12-24 13:37 | PCM.PYCHPN ---
Psychiatric Progress Note - Psychiatric Progress Note Patient seen today, length of contact: 30min Patient Chief Complaint: "I wanted to end it all" Problems Identified/Issues Discussed: Suicide/ homicide prevention, past psychiatric h/o, current psychiatric symptoms , medical problems, risk/benefits and alternatives of medications, medications compliance, coping strategies, substance abuse h/o, relapse prevention, importance of follow up with psychiatrist and therapist, discharge plan. Medical Problems: pt is physically healthy withdrawals are under control Diagnostic Results: 12/22/17 20:32 12/22/17 20:32 Lab Results 12/22/17 20:39: Urine Opiates Screen Positive H, Urine Methadone Screen Negative , Ur Barbiturates Screen Negative, Ur Phencyclidine Scrn Negative, Ur Amphetamines Screen Negative, U Benzodiazepines Scrn Positive H, U Oth Cocaine Metabols Negative, U Cannabinoids Screen Positive H 12/22/17 20:39: Urine Color Yellow, Urine Appearance Clear, Urine pH 6.0, Ur Specific [place] >= 1.030, Urine Protein Trace H, Urine Glucose (UA) Negative, Urine Ketones Negative, Urine Blood Negative, Urine Nitrate Negative, Urine Bilirubin Negative, Urine Urobilinogen 4.0 H, Ur Leukocyte Esterase Negative, Urine RBC 0 - 2, Urine WBC 0 - 2, Ur Epithelial Cells None, Calcium Oxalate Crystal Mod, Urine Bacteria Small 12/22/17 20:32: Alcohol, Quantitative < 10 12/22/17 20:32: Salicylates < 1 L, Acetaminophen < 10.0 L 12/22/17 20:32: Sodium 142, Potassium 3.6, Chloride 99, Carbon Dioxide 31, Anion Gap 15, BUN 13, Creatinine 0.6 L, Est GFR ( Amer) > 60, Est GFR ( Non-Af Amer) > 60, Random Glucose 96, Calcium 9.6, Magnesium 1.8, Total Bilirubin 0.6, AST 39, ALT 85 H, Alkaline Phosphatase 76, Total Protein 7.4, Albumin 3.9, Globulin 3.5, Albumin/Globulin Ratio 1.1 12/22/17 20:32: WBC 6.2 D, RBC 4.70, Hgb 13.8 L, Hct 38.7 L, MCV 82.3, MCH 29.4 , MCHC 35.7, RDW 12.7, Plt Count 229, MPV 8.4, Gran % 61.9, Lymph % (Auto) 30.5 , Braxton % (Auto) 6.9 H, Eos % (Auto) 0.5 L, Baso % (Auto) 0.2, Gran # 3.84, Lymph # (Auto) 1.9, Braxton # (Auto) 0.4, Eos # (Auto) 0.0, Baso # (Auto) 0.01 Vital Signs Temp Pulse Resp BP Pulse Ox 12/24/17 07:01 98.0 F 60 20 102/55 L 12/23/17 21:51 63 106/64 12/23/17 16:00 63 106/64 12/23/17 06:48 97.7 F 77 20 103/62 12/23/17 02:14 85 136/73 12/23/17 02:00 98.4 F 85 20 136/73 96 12/23/17 01:50 98 12/22/17 19:46 98.2 F 96 H 18 136/85 99 DSM 5 Symptoms Update: Rodrick Roberts is a 37 yo male with a history of depression and polysubstance abuse with multiple hospitalizations and chronic noncompliance. He was brought to the ED last night by his mother after a suicide attempt via trazadone, Aleve , Nyquil, and vodka. According to the ED notes, the patient stated his mother gave him a liquid to drink after which he vomited. patient requires further evaluation and stabilization, pt did not follow up with outpatient provider, was not taking any meds, pt is s/p suicidal attempt. patient was seen today at the treatment team meeting, patient showed some improvement with his presentation, was able to participate in interview, patient reported that he wanted to end it all because he cannot use drugs anymore, patient reported that he was feeling very hopeless helpless as well as worthless, patient reported that he overdosed on sleeping pills, and at present moment patient showed no remorse over his affect, but contracted for safety. Patient reported that he feels depressed, worthless, patient complains of pain in his body, patient was educated about his current medications, treatment plan was discussed in details. patient reported that he had history of withdrawal seizures, this field underwriter offered Ativan with the plan to decrease that medication slowly. Patient denied history of psychosis, denied hearing voices denied seeing things. No patient expressed his interest to go to inpatient rehabilitation. Overall patient tolerates medications well, no side effects observed or reported , aims 0, no EPS. As per staff patient is compliant with the medications, but self isolating, not participating in unit activities. DSM 5 Diagnosis: r/o MDD Substance-induced mood disorder Opioid use disorder Benzodiazepine use disorder Cannabis use disorder r/o bipolar disorder Medication Change: Yes (ativan added) Medical Record Reviewed: Yes Consults ordered or reviewed: patient is in good physical health, will consider to call medical consultation if patient follow have any physical complaints. Mental Status Examination - Cognitive Function Orientation: Person, Place Memory: Intact Attention: Poor Concentration: Poor Association: WNL Fund of Knowledge: WNL - Mood Mood: Depressed, Anxious - Affect Affect: Constricted, Flat - Speech Speech: Appropriate (but underproductive he has yes/no answers) - Formal Thought Process Formal Thought Process: No Impairment - Suicidal Ideation Suicidal Ideation: No - Homicidal Ideation Homicidal Ideation: No Goal/Treatment Plan - Goal/Treatment Plan Need for Continued Stay: Remain at risks for inpatient hospitalization, Severe depression anxiety, Discharge may exacerbated symptoms, Failed transitioning, Severe functional impairment Progress Toward Problem(s) and Goals/Treatment Plan: Milieu/structure/supportive therapy Medical consult appreciated, see medical team note for more detailed info SW consultation for discharge plan and social issues Med management 1. Seroquel 50 mg qAM, 100 mg qhs for mood and agitation 2. Remeron 15 mg qhs for mood 3. Trazodone 50 mg qhs for sleep 4. Gabapentin 400 mg tid for benzo withdrawal 5. Clonidine 0.1 mg q12hrs for ipioid withdrawal 6. Ativan 2 mg q6hr scheduled for benzos withdrwalas MVI Family involvement Follow up on labs Will monitor closely Pt was educated about risk/benefits and alternatives of medications, coping strategies (safety plan, suicide prevention), relapse prevention, importance of follow up with psychiatrist and therapist, stay away from drugs/alcohol/smoking pt wanst to go to the inpatient rehab Estimated Date of D/C: 12/30/17
[2017-12-25] MEDS: Multivitamin With Minerals Tab PO SCH (08:54)
--- NOTE | 2017-12-25 14:37 | PCM.PYCHPN ---
Psychiatric Progress Note - Psychiatric Progress Note Patient seen today, length of contact: 30min Patient Chief Complaint: "I am just hanging in there" Problems Identified/Issues Discussed: Suicide/ homicide prevention, past psychiatric h/o, current psychiatric symptoms , medical problems, risk/benefits and alternatives of medications, medications compliance, coping strategies, substance abuse h/o, relapse prevention, importance of follow up with psychiatrist and therapist, discharge plan. Medical Problems: pt is physically healthy withdrawals are under control Diagnostic Results: 12/22/17 20:32 12/22/17 20:32 Lab Results 12/22/17 20:39: Urine Opiates Screen Positive H, Urine Methadone Screen Negative , Ur Barbiturates Screen Negative, Ur Phencyclidine Scrn Negative, Ur Amphetamines Screen Negative, U Benzodiazepines Scrn Positive H, U Oth Cocaine Metabols Negative, U Cannabinoids Screen Positive H 12/22/17 20:39: Urine Color Yellow, Urine Appearance Clear, Urine pH 6.0, Ur Specific [place] >= 1.030, Urine Protein Trace H, Urine Glucose (UA) Negative, Urine Ketones Negative, Urine Blood Negative, Urine Nitrate Negative, Urine Bilirubin Negative, Urine Urobilinogen 4.0 H, Ur Leukocyte Esterase Negative, Urine RBC 0 - 2, Urine WBC 0 - 2, Ur Epithelial Cells None, Calcium Oxalate Crystal Mod, Urine Bacteria Small 12/22/17 20:32: Alcohol, Quantitative < 10 12/22/17 20:32: Salicylates < 1 L, Acetaminophen < 10.0 L 12/22/17 20:32: Sodium 142, Potassium 3.6, Chloride 99, Carbon Dioxide 31, Anion Gap 15, BUN 13, Creatinine 0.6 L, Est GFR ( Amer) > 60, Est GFR ( Non-Af Amer) > 60, Random Glucose 96, Calcium 9.6, Magnesium 1.8, Total Bilirubin 0.6, AST 39, ALT 85 H, Alkaline Phosphatase 76, Total Protein 7.4, Albumin 3.9, Globulin 3.5, Albumin/Globulin Ratio 1.1 12/22/17 20:32: WBC 6.2 D, RBC 4.70, Hgb 13.8 L, Hct 38.7 L, MCV 82.3, MCH 29.4 , MCHC 35.7, RDW 12.7, Plt Count 229, MPV 8.4, Gran % 61.9, Lymph % (Auto) 30.5 , [place] % (Auto) 6.9 H, Eos % (Auto) 0.5 L, Baso % (Auto) 0.2, Gran # 3.84, Lymph # (Auto) 1.9, [place] # (Auto) 0.4, Eos # (Auto) 0.0, Baso # (Auto) 0.01 Vital Signs Temp Pulse Resp BP Pulse Ox 12/24/17 07:01 98.0 F 60 20 102/55 L 12/23/17 21:51 63 106/64 12/23/17 16:00 63 106/64 12/23/17 06:48 97.7 F 77 20 103/62 12/23/17 02:14 85 136/73 12/23/17 02:00 98.4 F 85 20 136/73 96 12/23/17 01:50 98 12/22/17 19:46 98.2 F 96 H 18 136/85 99 DSM 5 Symptoms Update: Rodrick Roberts is a 37 yo male with a history of depression and polysubstance abuse with multiple hospitalizations and chronic noncompliance. He was brought to the ED last night by his mother after a suicide attempt via trazadone, Aleve , Nyquil, and vodka. According to the ED notes, the patient stated his mother gave him a liquid to drink after which he vomited. patient requires further evaluation and stabilization, pt did not follow up with outpatient provider, was not taking any meds, pt is s/p suicidal attempt. patient was seen today together with oncology social worker, patient presented with some improvement with his withdrawal symptoms, patient reported that he is able to tolerate food, nausea getting better, patient complained of twitching of his muscles, Seroquel will be decreased. Patient still presented to be hopeless and helpless as well as depressed. pt tolerates Ativan, he is aware that the plan to decrease that medication slowly. Patient denied history of psychosis, denied hearing voices denied seeing things. No patient expressed his interest to go to inpatient rehabilitation. Overall patient tolerates medications well, patient reported that he has twitching on Seroquel, aims 0, no EPS. As per staff patient is compliant with the medications, but self isolating, not participating in unit activities. DSM 5 Diagnosis: r/o MDD Substance-induced mood disorder Opioid use disorder Benzodiazepine use disorder Cannabis use disorder r/o bipolar disorder Medication Change: Yes (Seroquel decreased) Medical Record Reviewed: Yes Mental Status Examination - Cognitive Function Orientation: Person, Place Memory: Intact Attention: Poor Concentration: Poor Association: WNL Fund of Knowledge: WNL - Mood Mood: Depressed, Anxious - Affect Affect: Constricted, Flat - Speech Speech: Appropriate (but underproductive he has yes/no answers) - Formal Thought Process Formal Thought Process: No Impairment - Suicidal Ideation Suicidal Ideation: No - Homicidal Ideation Homicidal Ideation: No Goal/Treatment Plan - Goal/Treatment Plan Need for Continued Stay: Remain at risks for inpatient hospitalization, Severe depression anxiety, Discharge may exacerbated symptoms, Failed transitioning, Severe functional impairment Progress Toward Problem(s) and Goals/Treatment Plan: Milieu/structure/supportive therapy Medical consult appreciated, see medical team note for more detailed info SW consultation for discharge plan and social issues Med management 1. Seroquel 50 mg qAM, 50 mg qhs for mood and agitation 2. Remeron 15 mg qhs for mood 3. Trazodone 50 mg qhs for sleep 4. Gabapentin 400 mg tid for benzo withdrawal 5. Clonidine 0.1 mg q12hrs for ipioid withdrawal 6. Ativan 2 mg q6hr scheduled for benzos withdrwalas MVI Family involvement Follow up on labs Will monitor closely Pt was educated about risk/benefits and alternatives of medications, coping strategies (safety plan, suicide prevention), relapse prevention, importance of follow up with psychiatrist and therapist, stay away from drugs/alcohol/smoking pt wanst to go to the inpatient rehab Estimated Date of D/C: 12/30/17
[2017-12-26] MEDS: Multivitamin With Minerals Tab PO SCH (08:20)
--- NOTE | 2017-12-26 14:53 | PCM.PYCHPN ---
<Martine Small - Last Filed: 12/26/17 14:58> Psychiatric Progress Note - Psychiatric Progress Note Patient seen today, length of contact: 30min Patient Chief Complaint: Not good, my body or mind. Problems Identified/Issues Discussed: Suicide/ homicide prevention, past psychiatric h/o, current psychiatric symptoms , medical problems, risk/benefits and alternatives of medications, medications compliance, coping strategies, substance abuse h/o, relapse prevention, importance of follow up with psychiatrist and therapist, discharge plan. Medical Problems: denies Diagnostic Results: Vital Signs Temp Pulse Resp BP Pulse Ox 12/26/17 06:56 98.3 F 51 L 20 127/82 12/25/17 16:00 64 123/75 12/25/17 06:58 98.1 F 59 L 20 118/81 12/24/17 20:10 73 109/64 12/24/17 16:00 73 109/64 12/24/17 07:01 98.0 F 60 20 102/55 L 12/23/17 21:51 63 106/64 12/23/17 16:00 63 106/64 12/23/17 06:48 97.7 F 77 20 103/62 12/23/17 02:14 85 136/73 12/23/17 02:00 98.4 F 85 20 136/73 96 12/23/17 01:50 98 12/22/17 19:46 98.2 F 96 H 18 136/85 99 12/22/17 20:32 12/22/17 20:32 Lab Results 12/22/17 20:39: Urine Opiates Screen Positive H, Urine Methadone Screen Negative , Ur Barbiturates Screen Negative, Ur Phencyclidine Scrn Negative, Ur Amphetamines Screen Negative, U Benzodiazepines Scrn Positive H, U Oth Cocaine Metabols Negative, U Cannabinoids Screen Positive H 12/22/17 20:39: Urine Color Yellow, Urine Appearance Clear, Urine pH 6.0, Ur Specific [place] >= 1.030, Urine Protein Trace H, Urine Glucose (UA) Negative, Urine Ketones Negative, Urine Blood Negative, Urine Nitrate Negative, Urine Bilirubin Negative, Urine Urobilinogen 4.0 H, Ur Leukocyte Esterase Negative, Urine RBC 0 - 2, Urine WBC 0 - 2, Ur Epithelial Cells None, Calcium Oxalate Crystal Mod, Urine Bacteria Small 12/22/17 20:32: Alcohol, Quantitative < 10 12/22/17 20:32: Salicylates < 1 L, Acetaminophen < 10.0 L 12/22/17 20:32: Sodium 142, Potassium 3.6, Chloride 99, Carbon Dioxide 31, Anion Gap 15, BUN 13, Creatinine 0.6 L, Est GFR ( Amer) > 60, Est GFR ( Non-Af Amer) > 60, Random Glucose 96, Calcium 9.6, Magnesium 1.8, Total Bilirubin 0.6, AST 39, ALT 85 H, Alkaline Phosphatase 76, Total Protein 7.4, Albumin 3.9, Globulin 3.5, Albumin/Globulin Ratio 1.1 12/22/17 20:32: WBC 6.2 D, RBC 4.70, Hgb 13.8 L, Hct 38.7 L, MCV 82.3, MCH 29.4 , MCHC 35.7, RDW 12.7, Plt Count 229, MPV 8.4, Gran % 61.9, Lymph % (Auto) 30.5 , [place] % (Auto) 6.9 H, Eos % (Auto) 0.5 L, Baso % (Auto) 0.2, Gran # 3.84, Lymph # (Auto) 1.9, [place] # (Auto) 0.4, Eos # (Auto) 0.0, Baso # (Auto) 0.01 DSM 5 Symptoms Update: Rodrick Roberts is a 37 yo male with a history of depression and polysubstance abuse with multiple hospitalizations and chronic noncompliance. He was brought to the ED last night by his mother after a suicide attempt via trazadone, Aleve , Nyquil, and vodka. According to the ED notes, the patient stated his mother gave him a liquid to drink after which he vomited. Patients UDS positive for opioids, benzos, and THC. The patient has an extensive substance use history, specifically IV heroin, benzos, and cocaine. His last hospitalization was 2017 for 9 days. He was supposed to follow up at a suboxone clinic, but the patient admits to using drugs immediately after discharge and not complying with any outpatient care. Today, the patient presents as more alert. He is observed to be out of his room more but does not interact much with others and spent a lot of time on the phone. He states he is feeling somewhat better with less nausea but still has body aches. He is still depressed. He is calm on the unit and has not expressed any violence or anger. The patient has been compliant with medications and tolerates them well without side effects. He has not required any prn Ativan or Haldol. JOSE obtained collateral from the patients mother, Judie ([phone]). She reports receiving messages from patient stating he wanted to and life was not worth living prior to patient overdosing. She reports not seeing any medication around his apartment and is not sure if patient tried to commit suicide. She believes patient may have been "crying" out for help. Patient's mother states she has encouraged patient to seek inpatient treatment but has been resistant until recently. She reports he tries to detox himself from benzos causing him to have seizures. (See JOSE note for more details) Medication Change: No Medical Record Reviewed: Yes Consults ordered or reviewed: none Mental Status Examination - Cognitive Function Orientation: Person, Place, Situation, Time Memory: Intact Attention: Poor (but improved) Concentration: Poor (but improved) Association: WNL Fund of Knowledge: WN Decription of patient's judgement and insights: good insight, poor judgment - Mood Mood: Depressed - Affect Affect: Constricted - Speech Speech: Appropriate (but underproductive he has yes/no answers) - Formal Thought Process Formal Thought Process: No Impairment - Suicidal Ideation Suicidal Ideation: No - Homicidal Ideation Homicidal Ideation: No Goal/Treatment Plan - Goal/Treatment Plan Need for Continued Stay: Remain at risks for inpatient hospitalization, Severe depression anxiety, Discharge may exacerbated symptoms, Failed transitioning, Severe functional impairment Progress Toward Problem(s) and Goals/Treatment Plan: 1. Seroquel 50 mg bid for mood and agitation- does was decreased because patient reported twitching that he attributed to Seroquel 2. Remeron 15 mg qhs for mood 3. Trazodone 50 mg qhs for sleep 4. Gabapentin 400 mg tid for benzo withdrawal 5. Ativan 2 mg q4hrs- patient has not required any prn, patient understands this will be tapered 6. Clonidine 0.1 mg q12hrs prn for opioid withdrawal- patient has not required 7. Zofran 4 mg q8hrs prn for nausea- patient has not required 8. Milieu and group therapy 9. Social work consult for social issues and discharge- potential rehab 10. Family involvement (mother) Patient was educated about risk/benefits and alternatives of medications, coping strategies (safety plan, suicide prevention), relapse prevention, importance of follow up with psychiatrist and therapist, stay away from drugs/ alcohol/smoking. Estimated Date of D/C: 12/30/17 - Smoking Cessation Smoking Cessation Initiated: Yes <Deedee Concepcion - Last Filed: 12/26/17 15:58> Psychiatric Progress Note - Psychiatric Progress Note DSM 5 Symptoms Update: patient presented with some improvement with his withdrawal symptoms, patient reported that he is able to tolerate food, nausea getting better, patient complained of twitching of his muscles yesterday butit was improved after Seroquel was decreased Patient is more hopeful for the future, patient was willing to go to inpatient rehabilitation. pt tolerates Ativan, he is aware that the plan to decrease that medication slowly. Patient denied history of psychosis, denied hearing voices denied seeing things. No patient expressed his interest to go to inpatient rehabilitation. Overall patient tolerates medications well, patient reported that he has twitching on Seroquel, aims 0, no EPS. As per staff patient is compliant with the medications, but self isolating, not participating in unit activities. Medication Change: Yes (Ativan decreased, tramadol decreased) Goal/Treatment Plan - Goal/Treatment Plan Progress Toward Problem(s) and Goals/Treatment Plan: Ativan decreased, tramadol decreased
--- NOTE | 2017-12-27 09:00 | PCM.PYCHPN ---
Psychiatric Progress Note - Psychiatric Progress Note Patient seen today, length of contact: 30min Problems Identified/Issues Discussed: I reviewed assessment and recent notes. Patient appears to be improving, he is more visible and engaged on the unit. Subjectively, he reports feeling more hopeful. Patient is oriented x3 and coherent during my interview. Affect is constricted. Patient confirms continued improvement in both physical and psychiatric symptoms. Remains depressed but denies any wishes or suicidal thoughts. Feels less overwhelmed in general. Patient is tolerating his medications and denies any new discomfort, side effects or pain. Diagnostic Results: r/o MDD Substance-induced mood disorder Opioid use disorder Benzodiazepine use disorder Cannabis use disorder r/o bipolar disorder Medication Change: No ( ) Medical Record Reviewed: Yes Mental Status Examination - Cognitive Function Orientation: Person, Place, Situation, Time Memory: Intact Attention: Poor (but improved) Concentration: Poor (but improved) Association: WNL Fund of Knowledge: WNL - Mood Mood: Depressed - Affect Affect: Constricted - Speech Speech: Appropriate (but underproductive he has yes/no answers) - Formal Thought Process Formal Thought Process: No Impairment - Suicidal Ideation Suicidal Ideation: No - Homicidal Ideation Homicidal Ideation: No Goal/Treatment Plan - Goal/Treatment Plan Need for Continued Stay: Remain at risks for inpatient hospitalization, Severe depression anxiety, Discharge may exacerbated symptoms, Failed transitioning, Severe functional impairment Progress Toward Problem(s) and Goals/Treatment Plan: * c/w current tx and plan * No new weekend lab results thus far * Vitals reviewed and noted below: Selected Entries 12/27/17 06:38 Temperature 97.3 F L Pulse Rate 52 L Respiratory 20 Rate Blood Pressure 133/75 Estimated Date of D/C: 12/30/17
[2017-12-27] MEDS: Multivitamin With Minerals Tab PO SCH (14:38)
[2017-12-28] MEDS: Multivitamin With Minerals Tab PO SCH (09:10)
--- NOTE | 2017-12-28 09:10 | PCM.PYCHPN ---
Psychiatric Progress Note - Psychiatric Progress Note Patient seen today, length of contact: 30min Patient Chief Complaint: "still depressed" Problems Identified/Issues Discussed: I reviewed recent notes. Patient still appears to be improving a little. He still spends a lot of time in his room and has bouts of anxiety requiring prn Haldol and ativan. Subjectively, he reports feeling more hopeful, denies SI/HI but remains depressed. Affect is constricted. Thought process is coherent without evidence of perceptual disturbance. Patient is tolerating his medications and denies any new discomfort, side effects or pain. Patient reports that "shakiness" is improving. There have been no behavioral issues over the weekend thus far. Diagnostic Results: r/o MDD Substance-induced mood disorder Opioid use disorder Benzodiazepine use disorder Cannabis use disorder r/o bipolar disorder Medication Change: No ( ) Medical Record Reviewed: Yes Mental Status Examination - Cognitive Function Orientation: Person, Place, Situation, Time Memory: Intact Attention: WNL (but improved) Concentration: Poor (but improved) Association: WNL Fund of Knowledge: WNL - Mood Mood: Depressed - Affect Affect: Constricted - Speech Speech: Appropriate (but underproductive he has yes/no answers) - Formal Thought Process Formal Thought Process: No Impairment - Suicidal Ideation Suicidal Ideation: No - Homicidal Ideation Homicidal Ideation: No Goal/Treatment Plan - Goal/Treatment Plan Need for Continued Stay: Remain at risks for inpatient hospitalization, Severe depression anxiety, Discharge may exacerbated symptoms, Failed transitioning, Severe functional impairment Progress Toward Problem(s) and Goals/Treatment Plan: * c/w current tx and plan * No new weekend lab results * Vitals reviewed and noted below: Selected Entries 12/27/17 12/27/17 06:38 16:41 Temperature 97.3 F L Pulse Rate 52 L 77 Respiratory 20 Rate Blood Pressure 133/75 113/72 Estimated Date of D/C: 12/30/17
[2017-12-29] MEDS: Multivitamin With Minerals Tab PO SCH (08:40)
[2017-12-29 10:26] LABS: BASO # 0.02 K/mm3 (0.0-2.0); BASO % 0.3 % (0.0-3.0); EOS % 0.4 % (1.5-5.0); GRAN # 4.21 (1.4-6.5); GRAN % 60.6 % (50.0-68.0); HEMOGLOBIN 14.4 g/dL (14.0-18.0); LYMPH # 2.4 (1.2-3.4); LYMPH % 35.2 % (22.0-35.0); MEAN CORPUSCULAR HEMOGLOBIN 28.7 pg (25.0-35.0); MONO # 0.2 (0.1-0.6); MONO % 3.5 % (1.0-6.0); RBC 5.01 10^6/uL (3.5-6.1); RED CELL DISTRIBUTION WIDTH 13.1 % (11.5-14.5); WHITE BLOOD COUNT 6.9 10^3/ul (4.5-11.0)
[2017-12-29 10:36] LABS: ALB/GLOB RATIO 1.2 (1.1-1.8); ALBUMIN 4.3 g/dL (3.0-4.8); ALT/SGPT 41 U/L (7-56); AST/SGOT 20 U/L (17-59); BLOOD UREA NITROGEN 21 mg/dL (7-21); CALCIUM 9.9 mg/dL (8.4-10.5); GFR AFRICAN-AMERICAN > 60; GFR NON-AFRICAN AMERICAN > 60
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
--- NOTE | 2017-12-29 15:46 | PCM.PYCHPN ---
Psychiatric Progress Note - Psychiatric Progress Note Patient seen today, length of contact: 30min Patient Chief Complaint: "I feel better, can you increase my Neurontin?" Problems Identified/Issues Discussed: Suicide/ homicide prevention, past psychiatric h/o, current psychiatric symptoms , medical problems, risk/benefits and alternatives of medications, medications compliance, coping strategies, substance abuse h/o, relapse prevention, importance of follow up with psychiatrist and therapist, discharge plan. Medical Problems: pt is physically healthy withdrawals are under control Diagnostic Results: 12/22/17 20:32 12/22/17 20:32 Lab Results 12/22/17 20:39: Urine Opiates Screen Positive H, Urine Methadone Screen Negative , Ur Barbiturates Screen Negative, Ur Phencyclidine Scrn Negative, Ur Amphetamines Screen Negative, U Benzodiazepines Scrn Positive H, U Oth Cocaine Metabols Negative, U Cannabinoids Screen Positive H 12/22/17 20:39: Urine Color Yellow, Urine Appearance Clear, Urine pH 6.0, Ur Specific [place] >= 1.030, Urine Protein Trace H, Urine Glucose (UA) Negative, Urine Ketones Negative, Urine Blood Negative, Urine Nitrate Negative, Urine Bilirubin Negative, Urine Urobilinogen 4.0 H, Ur Leukocyte Esterase Negative, Urine RBC 0 - 2, Urine WBC 0 - 2, Ur Epithelial Cells None, Calcium Oxalate Crystal Mod, Urine Bacteria Small 12/22/17 20:32: Alcohol, Quantitative < 10 12/22/17 20:32: Salicylates < 1 L, Acetaminophen < 10.0 L 12/22/17 20:32: Sodium 142, Potassium 3.6, Chloride 99, Carbon Dioxide 31, Anion Gap 15, BUN 13, Creatinine 0.6 L, Est GFR ( Amer) > 60, Est GFR ( Non-Af Amer) > 60, Random Glucose 96, Calcium 9.6, Magnesium 1.8, Total Bilirubin 0.6, AST 39, ALT 85 H, Alkaline Phosphatase 76, Total Protein 7.4, Albumin 3.9, Globulin 3.5, Albumin/Globulin Ratio 1.1 12/22/17 20:32: WBC 6.2 D, RBC 4.70, Hgb 13.8 L, Hct 38.7 L, MCV 82.3, MCH 29.4 , MCHC 35.7, RDW 12.7, Plt Count 229, MPV 8.4, Gran % 61.9, Lymph % (Auto) 30.5 , [place] % (Auto) 6.9 H, Eos % (Auto) 0.5 L, Baso % (Auto) 0.2, Gran # 3.84, Lymph # (Auto) 1.9, Clinch # (Auto) 0.4, Eos # (Auto) 0.0, Baso # (Auto) 0.01 Vital Signs Temp Pulse Resp BP Pulse Ox 12/24/17 07:01 98.0 F 60 20 102/55 L 12/23/17 21:51 63 106/64 12/23/17 16:00 63 106/64 12/23/17 06:48 97.7 F 77 20 103/62 12/23/17 02:14 85 136/73 12/23/17 02:00 98.4 F 85 20 136/73 96 12/23/17 01:50 98 12/22/17 19:46 98.2 F 96 H 18 136/85 99 Temp Pulse Resp BP Pulse Ox 97.6 F 53 L 20 134/75 96 12/29/17 07:31 12/29/17 07:31 12/29/17 07:31 12/29/17 07:31 12/23/17 02:00 DSM 5 Symptoms Update: patient was seen and examined today at the treatment team meeting, patient presented well, patient reported that he is improving, patient requested his Seroquel to be discontinued because of increased appetite, patient reported well result on Risperdal before, willing to try this medication again, patient reported that his last seizures were in November 20, patient requested Neurontin to be increased. Patient reported that his sleep is improving, patient was educated about the Remeron and trazodone risk benefits alternatives discussed with the patient. Patient is looking forward for inpatient rehabilitation but it symptoms due to medical issues (seizures) patient will be not accepted. patient agreed to go to intensive outpatient program for dual diagnosis. Agree with Dr. Hidalgo's assessment he reports feeling more hopeful Pt denies SI/HI but remains depressed. Affect is constricted, but was reactive today. Thought process is coherent without evidence of perceptual disturbance. Patient is tolerating his medications and denies any new discomfort, side effects or pain. Patient reports that "shakiness" is improving. There have been no behavioral issues over the weekend thus far. patient tolerates medications well, no side effects observed or reported, aims 0 , no EPS. Diagnostic Results: r/o MDD Substance-induced mood disorder Opioid use disorder Benzodiazepine use disorder Cannabis use disorder r/o bipolar disorder Medication Change: Yes (Ativan decreased, tramadol decreased, Seroquel was discontinued, Risperdal ) Medical Record Reviewed: Yes Consults ordered or reviewed: patient is in good physical health, will consider to call medical consultation if patient follow have any physical complaints. Mental Status Examination - Cognitive Function Orientation: Person, Place, Situation, Time Memory: Intact Attention: WNL (but improved) Concentration: Poor (but improved) Association: WNL Fund of Knowledge: WNL - Mood Mood: Depressed ("I feel little better") - Affect Affect: Constricted - Speech Speech: Appropriate (but underproductive he has yes/no answers) - Formal Thought Process Formal Thought Process: No Impairment - Suicidal Ideation Suicidal Ideation: No - Homicidal Ideation Homicidal Ideation: No Goal/Treatment Plan - Goal/Treatment Plan Need for Continued Stay: Remain at risks for inpatient hospitalization, Severe depression anxiety, Discharge may exacerbated symptoms, Failed transitioning, Severe functional impairment Progress Toward Problem(s) and Goals/Treatment Plan: 1. Seroquel discontinued, Risperdal was started 1 mg twice a day and at bedtime 2. Remeron 30 mg qhs for mood 3. Trazodone 50 mg qhs for sleep 4. Gabapentin 600 mg tid for benzo withdrawal 5. Ativan 1 mg q8hrs- patient has not required any prn, patient understands this will be tapered 6. Clonidine 0.1 mg q12hrs prn for opioid withdrawal- patient has not required 7. Zofran 4 mg q8hrs prn for nausea- patient has not required 8. Milieu and group therapy 9. Social work consult for social issues and discharge- potential rehab 10. Family involvement (mother) Patient was educated about risk/benefits and alternatives of medications, coping strategies (safety plan, suicide prevention), relapse prevention, importance of follow up with psychiatrist and therapist, stay away from drugs/ alcohol/smoking. patient was not accepted into inpatient rehabilitation Estimated Date of D/C: 12/30/17
[2017-12-30] MEDS: Multivitamin With Minerals Tab PO SCH (08:17)
--- NOTE | 2017-12-30 08:34 | PCM.BM ---
Treatment Plan Problems - Problems identified on initial assessmt Medication Nonadherence Date Initiated: 12/23/17 Time Initiated: 02:00 Assessment reference: NA Status: Active Priority: 1 Ineffective Coping Date Initiated: 12/23/17 Time Initiated: 02:00 Assessment reference: NA Status: Active Priority: 2 Feelings of Worthlessness Date Initiated: 12/23/17 Time Initiated: 02:00 Assessment reference: NA Status: Active Priority: 3 Hopelessness/Helplessness Date Initiated: 12/23/17 Time Initiated: 02:00 Assessment reference: NA Status: Active Priority: 4 Treatment assets and liabiliti Patient Assests: cooperative, self-reliant, ADL independent, good past tx response, cognitively intact, good interpersonal skills Patient Liabilities: live alone, substance abuse - Milieu Protocol Maintain good personal hygiene: daily Encourage regular showers, every shift Remind patient to perform daily oral care, every shift Assist patient to perform ADL's Maintain personal safety: every shift Educate patient to report safety concerns to staff, every shift Monitor environment for contraband/sharps Medication safety: Monitor for expected outcome, potential side effects: every shift, Assess barriers to learning: every shift, Assess readiness for medication education: every shift Milieu Narrative: 1. Seroquel discontinued, Risperdal was started 1 mg twice a day and at bedtime 2. Remeron 30 mg qhs for mood 3. Trazodone 50 mg qhs for sleep 4. Gabapentin 600 mg tid for benzo withdrawal 5. Ativan 1 mg q8hrs- patient has not required any prn, patient understands this will be tapered 6. Clonidine 0.1 mg q12hrs prn for opioid withdrawal- patient has not required 7. Zofran 4 mg q8hrs prn for nausea- patient has not required 8. Milieu and group therapy 9. Social work consult for social issues and discharge- potential rehab 10. Family involvement (mother) Patient was educated about risk/benefits and alternatives of medications, coping strategies (safety plan, suicide prevention), relapse prevention, importance of follow up with psychiatrist and therapist, stay away from drugs/ alcohol/smoking. patient was not accepted into inpatient rehabilitation Family Contact Family contact: Patient agrees to contact Family contact name: Judie(mother) [phone] Family contacted how many times per week?: 2 - Goals for Treatment Patient goals for treatment: Current goal for admission is, "to get off this stuff so I can go into a program. Also, so I can stop wanting to hurt myself." Discharge/Continuing Care - Education Needs Education Needs: Patient Medication, Patient Diagnosis/Disease Process, Patient Coping Skills, Patient Anger Management skills, Patient Placement options, Patient Community resources, Patient Activities of Daily Living, Patient Pain, Patient Nutrition, Patient Uses of Medical Equipment, Patient Health Practices/ Safety, Patient Personal Hygiene/Grooming, Patient Aftercare Safety Plan - Discharge Discharge Criteria: Tolerates medication w/o severe side effects, Free of Suicidal thoughts - Treatment Team Participation Patient/Family/SO Statement: 1. Seroquel discontinued, Risperdal was started 1 mg twice a day and at bedtime 2. Remeron 30 mg qhs for mood 3. Trazodone 50 mg qhs for sleep 4. Gabapentin 600 mg tid for benzo withdrawal 5. Ativan 1 mg q8hrs- patient has not required any prn, patient understands this will be tapered 6. Clonidine 0.1 mg q12hrs prn for opioid withdrawal- patient has not required 7. Zofran 4 mg q8hrs prn for nausea- patient has not required 8. Milieu and group therapy 9. Social work consult for social issues and discharge- potential rehab 10. Family involvement (mother) Patient was educated about risk/benefits and alternatives of medications, coping strategies (safety plan, suicide prevention), relapse prevention, importance of follow up with psychiatrist and therapist, stay away from drugs/ alcohol/smoking. patient was not accepted into inpatient rehabilitation Treatment Plan Review - Problem Medication Nonadherence Time Initiated: 02:00 Ineffective Coping Time Initiated: 02:00 Feelings of Worthlessness Time Initiated: 02:00 Hopelessness/Helplessness Time Initiated: 02:00
--- NOTE | 2017-12-30 13:27 | PCM.PYCHPN ---
<Martine Small - Last Filed: 12/30/17 13:28> Psychiatric Progress Note - Psychiatric Progress Note Patient seen today, length of contact: 30min Patient Chief Complaint: Well I had a bad morning but now Im better. Problems Identified/Issues Discussed: Suicide/ homicide prevention, past psychiatric h/o, current psychiatric symptoms , medical problems, risk/benefits and alternatives of medications, medications compliance, coping strategies, substance abuse h/o, relapse prevention, importance of follow up with psychiatrist and therapist, discharge plan. Medical Problems: denies Diagnostic Results: Vital Signs Temp Pulse Resp BP Pulse Ox 12/26/17 06:56 98.3 F 51 L 20 127/82 12/25/17 16:00 64 123/75 12/25/17 06:58 98.1 F 59 L 20 118/81 12/24/17 20:10 73 109/64 12/24/17 16:00 73 109/64 12/24/17 07:01 98.0 F 60 20 102/55 L 12/23/17 21:51 63 106/64 12/23/17 16:00 63 106/64 12/23/17 06:48 97.7 F 77 20 103/62 12/23/17 02:14 85 136/73 12/23/17 02:00 98.4 F 85 20 136/73 96 12/23/17 01:50 98 12/22/17 19:46 98.2 F 96 H 18 136/85 99 12/22/17 20:32 12/22/17 20:32 Lab Results 12/22/17 20:39: Urine Opiates Screen Positive H, Urine Methadone Screen Negative , Ur Barbiturates Screen Negative, Ur Phencyclidine Scrn Negative, Ur Amphetamines Screen Negative, U Benzodiazepines Scrn Positive H, U Oth Cocaine Metabols Negative, U Cannabinoids Screen Positive H 12/22/17 20:39: Urine Color Yellow, Urine Appearance Clear, Urine pH 6.0, Ur Specific [place] >= 1.030, Urine Protein Trace H, Urine Glucose (UA) Negative, Urine Ketones Negative, Urine Blood Negative, Urine Nitrate Negative, Urine Bilirubin Negative, Urine Urobilinogen 4.0 H, Ur Leukocyte Esterase Negative, Urine RBC 0 - 2, Urine WBC 0 - 2, Ur Epithelial Cells None, Calcium Oxalate Crystal Mod, Urine Bacteria Small 12/22/17 20:32: Alcohol, Quantitative < 10 12/22/17 20:32: Salicylates < 1 L, Acetaminophen < 10.0 L 12/22/17 20:32: Sodium 142, Potassium 3.6, Chloride 99, Carbon Dioxide 31, Anion Gap 15, BUN 13, Creatinine 0.6 L, Est GFR ( Amer) > 60, Est GFR ( Non-Af Amer) > 60, Random Glucose 96, Calcium 9.6, Magnesium 1.8, Total Bilirubin 0.6, AST 39, ALT 85 H, Alkaline Phosphatase 76, Total Protein 7.4, Albumin 3.9, Globulin 3.5, Albumin/Globulin Ratio 1.1 12/22/17 20:32: WBC 6.2 D, RBC 4.70, Hgb 13.8 L, Hct 38.7 L, MCV 82.3, MCH 29.4 , MCHC 35.7, RDW 12.7, Plt Count 229, MPV 8.4, Gran % 61.9, Lymph % (Auto) 30.5 , [place] % (Auto) 6.9 H, Eos % (Auto) 0.5 L, Baso % (Auto) 0.2, Gran # 3.84, Lymph # (Auto) 1.9, [place] # (Auto) 0.4, Eos # (Auto) 0.0, Baso # (Auto) 0.01 Temp Pulse Resp BP Pulse Ox 98.1 F 51 L 18 129/71 96 12/30/17 06:48 12/30/17 06:48 12/30/17 06:48 12/30/17 06:48 12/23/17 02:00 DSM 5 Symptoms Update: Rodrick Roberts is a 37 yo male with a history of depression and polysubstance abuse with multiple hospitalizations and chronic noncompliance. He was brought to the ED last night by his mother after a suicide attempt via trazadone, Aleve , Nyquil, and vodka. According to the ED notes, the patient stated his mother gave him a liquid to drink after which he vomited. Patients UDS positive for opioids, benzos, and THC. The patient has an extensive substance use history, specifically IV heroin, benzos, and cocaine. His last hospitalization was 2017 for 9 days. He was supposed to follow up at a suboxone clinic, but the patient admits to using drugs immediately after discharge and not complying with any outpatient care. Patient was seen this morning in the conference room along with the hospital social worker. The patient has been observed in the milieu participating in groups and interacting with others. He is discouraged that he was denied from inpatient rehab (see SW note for details). He states that he has a friend in a program in [place] that he would like to get in to. He was advised to get in touch with this friend to see if this is a possibility upon discharge. The patient reports his mood is good. He denies any physical symptoms. He said he had some trouble sleeping. The patient has been compliant with medications and is tolerating them well without side effects. Patient was seen by hospitalist. Patient reports diarrhea is improving. Awaiting C diff results. Patient does not need contact isolation. Medicine team signed off at this time. Medication Change: Yes (increased Remeron, increased trazodone) Medical Record Reviewed: Yes Consults ordered or reviewed: medicine Mental Status Examination - Cognitive Function Orientation: Person, Place, Situation, Time Memory: Intact Attention: WNL (fair insight, poor judgment) Concentration: WNL Association: [facility] Fund of Knowledge: WN - Mood Mood: Neutral - Affect Affect: Constricted (reactive at times) - Speech Speech: Appropriate (but underproductive he has yes/no answers) - Formal Thought Process Formal Thought Process: No Impairment - Suicidal Ideation Suicidal Ideation: No - Homicidal Ideation Homicidal Ideation: No Goal/Treatment Plan - Goal/Treatment Plan Need for Continued Stay: Remain at risks for inpatient hospitalization, Severe depression anxiety, Discharge may exacerbated symptoms, Failed transitioning, Severe functional impairment Progress Toward Problem(s) and Goals/Treatment Plan: 1. Risperdal 1 mg bid, 1 mg qhs 2. Remeron 45 mg qhs for mood, sleep, and appetite 3. Trazodone 100 mg qhs for sleep 4. Gabapentin 600 mg tid for benzo withdrawal, mood 5. Ativan 1 mg q8hrs- required x1 yesterday (12/29) 6. Clonidine 0.1 mg q12hrs prn for opioid withdrawal- patient required x1 yesterday 7. Zofran 4 mg q8hrs prn for nausea- patient has not required Milieu and group therapy Social work consult for social issues and discharge Family involvement (mother) Patient was educated about risk/benefits and alternatives of medications, coping strategies (safety plan, suicide prevention), relapse prevention, importance of follow up with psychiatrist and therapist, stay away from drugs/ alcohol/smoking. Estimated Date of D/C: 01/01/18 If changed, why: discharge planning- denied from rehab - Smoking Cessation Smoking Cessation Initiated: Yes <Deedee Concepcion - Last Filed: 12/30/17 14:06> Psychiatric Progress Note - Psychiatric Progress Note DSM 5 Symptoms Update: patient was seen and examined today at the treatment team meeting with general internal medicine doctor and SW, pt reported to feel "little better". pt was rejected by inpatient rehab, pt now thinks to go for [facility]. Pt reports feeling more hopeful. Pt denies SI/HI but remains depressed. Affect is constricted, but was reactive today. Thought process is coherent without evidence of perceptual disturbance. Patient is tolerating his medications and denies any new discomfort, side effects or pain. Patient reports that "shakiness" is improving. There have been no behavioral issues over the weekend thus far. patient tolerates medications well, no side effects observed or reported, aims 0 , no EPS. Diagnostic Results: r/o MDD Substance-induced mood disorder Opioid use disorder Benzodiazepine use disorder Cannabis use disorder r/o bipolar disorder Goal/Treatment Plan - Goal/Treatment Plan Progress Toward Problem(s) and Goals/Treatment Plan: ativan decreased agree with assessment and plan
[2017-12-30 18:34] VITALS: PULSE 77
[2017-12-31 07:04] VITALS: BP 119/79; RESP 20; TEMP 97.4
[2017-12-31] MEDS: Multivitamin With Minerals Tab PO SCH (07:52)
--- NOTE | 2018-01-01 17:33 | PCM.PYCHDC ---
Mental Status Examination - Mental Status Examination Orientation: Person, Place, Situation, Time Memory: Intact Mood: Neutral Affect: Broad (reactive and mood congruent) Speech: Appropriate Attention: WNL Concentration: WNL Association: WNL Fund of Knowledge: WNL Formal Thought Process: No Impairment Description of patient's judgement and insight: Pt has improved insight into mental and medical illness, pt was compliant with medications and unit rules and regulations, pt was going to groups, was calm, cooperative, socially appropriate, no behavioral incidents, no agitation, no aggression. Psychotic Thoughts and Behaviors: Pt denied v/a/t hallucinations, denied paranoid ideations, pt does not appear to be psychotic, and thought process is goal directed. Suicidal Ideation: No Current Homicidal Ideation?: No Plan: pt adamantly denied thoughts of harming self or others denied intent or plan. Discharge Summary - Discharge Note Reason for Hospitalization: patient was admitted to the psychiatric inpatient unit for evaluation and stabilization of depressive symptoms, status post possible suicidal attempt, lease see admission note for more detailed information. Psychiatric History (includes Medical, Family, Personal Hx): medications, detox Laboratory Data: 12/29/17 10:10 12/29/17 10:10 Lab Results 12/29/17 10:10: Sodium 147, Potassium 4.3, Chloride 110 H, Carbon Dioxide 23, Anion Gap 18, BUN 21, Creatinine 0.8, Est GFR ( Amer) > 60, Est GFR (Non- Af Amer) > 60, Random Glucose 101, Calcium 9.9, Phosphorus 2.9, Magnesium 2.3 H , Total Bilirubin 0.4, AST 20, ALT 41, Alkaline Phosphatase 75, Total Protein 7.9, Albumin 4.3, Globulin 3.6, Albumin/Globulin Ratio 1.2 12/29/17 10:10: WBC 6.9, RBC 5.01, Hgb 14.4, Hct 41.1 L, MCV 82.0, MCH 28.7, MCHC 35.0, RDW 13.1, Plt Count 252, MPV 9.0, Gran % 60.6, Lymph % (Auto) 35.2 H , [place] % (Auto) 3.5, Eos % (Auto) 0.4 L, Baso % (Auto) 0.3, Gran # 4.21, Lymph # (Auto) 2.4, [place] # (Auto) 0.2, Eos # (Auto) 0.0, Baso # (Auto) 0.02 12/22/17 20:39: Urine Opiates Screen Positive H, Urine Methadone Screen Negative , Ur Barbiturates Screen Negative, Ur Phencyclidine Scrn Negative, Ur Amphetamines Screen Negative, U Benzodiazepines Scrn Positive H, U Oth Cocaine Metabols Negative, U Cannabinoids Screen Positive H 12/22/17 20:39: Urine Color Yellow, Urine Appearance Clear, Urine pH 6.0, Ur Specific [place] >= 1.030, Urine Protein Trace H, Urine Glucose (UA) Negative, Urine Ketones Negative, Urine Blood Negative, Urine Nitrate Negative, Urine Bilirubin Negative, Urine Urobilinogen 4.0 H, Ur Leukocyte Esterase Negative, Urine RBC 0 - 2, Urine WBC 0 - 2, Ur Epithelial Cells None, Calcium Oxalate Crystal Mod, Urine Bacteria Small 12/22/17 20:32: Alcohol, Quantitative < 10 12/22/17 20:32: Salicylates < 1 L, Acetaminophen < 10.0 L 12/22/17 20:32: Sodium 142, Potassium 3.6, Chloride 99, Carbon Dioxide 31, Anion Gap 15, BUN 13, Creatinine 0.6 L, Est GFR ( Amer) > 60, Est GFR ( Non-Af Amer) > 60, Random Glucose 96, Calcium 9.6, Magnesium 1.8, Total Bilirubin 0.6, AST 39, ALT 85 H, Alkaline Phosphatase 76, Total Protein 7.4, Albumin 3.9, Globulin 3.5, Albumin/Globulin Ratio 1.1 12/22/17 20:32: WBC 6.2 D, RBC 4.70, Hgb 13.8 L, Hct 38.7 L, MCV 82.3, MCH 29.4 , MCHC 35.7, RDW 12.7, Plt Count 229, MPV 8.4, Gran % 61.9, Lymph % (Auto) 30.5 , [place] % (Auto) 6.9 H, Eos % (Auto) 0.5 L, Baso % (Auto) 0.2, Gran # 3.84, Lymph # (Auto) 1.9, [place] # (Auto) 0.4, Eos # (Auto) 0.0, Baso # (Auto) 0.01 Vital Signs Temp Pulse Resp BP Pulse Ox 12/31/17 07:03 97.4 F L 77 20 119/79 12/30/17 16:00 77 122/65 12/30/17 06:48 98.1 F 51 L 18 129/71 12/29/17 21:02 74 130/76 12/29/17 07:31 97.6 F 53 L 20 134/75 12/28/17 15:56 65 123/67 12/28/17 09:09 56 L 137/78 12/28/17 07:36 96.8 F L 56 L 20 131/78 12/27/17 16:41 77 113/72 12/27/17 06:38 97.3 F L 52 L 20 133/75 12/26/17 16:00 70 123/77 12/26/17 06:56 98.3 F 51 L 20 127/82 12/25/17 16:00 64 123/75 12/25/17 06:58 98.1 F 59 L 20 118/81 12/24/17 20:10 73 109/64 12/24/17 16:00 73 109/64 12/24/17 07:01 98.0 F 60 20 102/55 L 12/23/17 21:51 63 106/64 12/23/17 16:00 63 106/64 12/23/17 06:48 97.7 F 77 20 103/62 12/23/17 02:14 85 136/73 12/23/17 02:00 98.4 F 85 20 136/73 96 12/23/17 01:50 98 12/22/17 19:46 98.2 F 96 H 18 136/85 99 Consultations:: List each consultation separately and include: 1. Reason for request. 2. Findings. 3. Follow-up Consultations: patient is in good physical health, will consider to call medical consultation if patient follow have any physical complaints. Summary of Hospital Course include:: 1. Description of specific treatment plan utilized for patients during their course of treatmen. 2. Summarize the time- course for resolution of acute symptoms and/or regressed behaviors. 3. Describe issues identified and worked on during hospitalization. 4. Describe medication utilized. 5. Describe medical problems identified and treated. 6. Reassessment of suicide risk Summary of Hospital Course: Rodrick Roberts is a 37 yo male with a history of depression and polysubstance abuse with multiple hospitalizations and chronic noncompliance. He was brought to the ED last night by his mother after a suicide attempt via trazadone, Aleve , Nyquil, and vodka. According to the ED notes, the patient stated his mother gave him a liquid to drink after which he vomited. Patients UDS positive for opioids, benzos, and THC. The patient has an extensive substance use history, specifically IV heroin, benzos, and cocaine. His last hospitalization was 10/2017 for 9 days. He was supposed to follow up at a suboxone clinic, but the patient admits to using drugs immediately after discharge and not complying with any outpatient care. According to PES assessment, patient came to ED with complaint of a suicidal attempt in the morning by taking an OD of pills at his mother's house. He stated that his mother found him when he was taking the pills (about 600), and she made him throw up and come to the hospital to get help. Patient continued reporting suicidal thoughts, stated that he hates his life because of his addiction to drugs, and requested to be admitted to get help. Patient denied delusions/hallucinations and denied homicidal thoughts. at the time of initial evaluation patient presented to be sleepy, withdrawn, not willing to participate in interview, poor personal hygiene, multiple tattoos in upper extremities, fare ADLs, patient reported after he was discharged from the psychiatric inpatient unit she relapsed on., Did not follow up with Suboxone clinic, as a result ported that he became depressed, hopeless, helpless, not willing to leave anymore. Patient reported that he relapsed on drugs, using 20 bags of heroin daily, patient complain of diarrhea, nausea, and vomiting, patient reported that he is able to tolerate food today at the morning time, patient was advised to ask sulfur on for his symptoms. Patient reported that he smokes cigarettes, about a pack a day, patient was not receptive to counseling because of withdrawal symptoms and depression. nicotine patch was offered Patient denied hearing voices denied seeing things denied paranoid ideation. Patient contracted for safety during the interview. As per staff patient is isolating himself, not participating in unit activities , but no agitation or aggression. treatment plan was discussed with the patient, patient is willing to take medications. patient was stabilized on the following medications: gabapentin Lorazepam Risperdal Trazodone Patient tolerated medications well, no side effects observed or reported, dosage please see below, aims 0, no EPS. Patient did not exhibit any physical symptoms of withdrawals, vital signs were within normal limits. Over the course of this hospitalization pt was attending groups, pt also had medication management, had therapeutic milieu. Overall pt improved significantly, pt's affect became brighter, pt was less depressed, has realistic future oriented plans, pt also does not appear to be psychotic, or anxious, pt was socially appropriate, no behavioral issues, pts insight improved as well and soon pt deemed to be ready for discharge. At the time of the discharge pt denied been depressed, denied thoughts of harming self or others, denied psychotic symptoms, and pt does not appeared to be psychotic, denied been anxious, pt is not in imminent danger to self or others, will be following up at Suboxone clinic, information about follow up appointment, time and address provided to the pt, it is patient responsibility to follow up with outpatient clinic, PMD as well as specialists (see note for more detailed information). In case pt will need to obtain results of studies pending at discharge pt was provided with contact information of Psychiatric Inpatient unit [phone] as well as Medical Record Department [phone]. Nicotine patch was offered patient was to be followed up at Suboxone clinic Counseling about smoking and alcohol cessation provided AA NA meetings as well as smoking cessation treatment program information was provided by the pt was provided with prescriptions for all of medications (please see medication reconciliation form) Pt was educated about safety plan in case of worsening of symptoms or in case of suicidal or homicidal ideation call 911 or go to the nearest ER, also was educated to take meds as prescribed and stay away from drugs, pt verbalized understanding. - Diagnosis (1) MDD (major depressive disorder) Status: Chronic Priority: Medium (2) Polysubstance (including opioids) dependence with physiol dependence Status: Chronic Priority: High - Final Diagnosis (DSM 5) Condition upon Discharge: IMPROVED Disposition: HOME/ ROUTINE Follow-up Treatment Plan: At the time of the discharge pt denied been depressed, denied thoughts of harming self or others, denied psychotic symptoms, and pt does not appeared to be psychotic, denied been anxious, pt is not in imminent danger to self or others, will be following up at Suboxone clinic, information about follow up appointment, time and address provided to the pt, it is patient responsibility to follow up with outpatient clinic, PMD as well as specialists (see note for more detailed information). In case pt will need to obtain results of studies pending at discharge pt was provided with contact information of Psychiatric Inpatient unit [phone] as well as Medical Record Department [phone]. Nicotine patch was offered patient was to be followed up at Suboxone clinic Counseling about smoking and alcohol cessation provided AA NA meetings as well as smoking cessation treatment program information was provided by the pt was provided with prescriptions for all of medications (please see medication reconciliation form) Pt was educated about safety plan in case of worsening of symptoms or in case of suicidal or homicidal ideation call 911 or go to the nearest ER, also was educated to take meds as prescribed and stay away from drugs, pt verbalized understanding. Prescriptions/Medication Reconciliation: Gabapentin [Neurontin] 600 mg PO TID #90 tab LORazepam [Ativan] 1 mg PO BID #14 tab Risperidone [Risperdal] 0.5 mg PO BID #60 tablet Trazodone HCl 150 mg PO HS #30 tablet - Smoking Cessation Smoking Cessation Medication prescribed: No Reason for not providing: pt refused - Antipsychotic Medications Pt discharged on 2 or more routine antipsychotic medications: No
== END 2017-12-31 14:21 | disposition home or self-care (01) | DRG 897 ==
LOC: ED 19:42 → ERH 23:53 → PSYC 12-23 01:45
PROVIDERS: ADMIT Psychiatry & Neurology Psychiatry; ATTEND Psychiatry & Neurology Psychiatry
PROC: GZ3ZZZZ Medication Management (ICD-10-PCS; principal; 2017-12-23)
DX: F19.94 Other psychoactive substance use, unspecified with psychoactive substance-induced mood disorder (principal); F32.9 Major depressive disorder, single episode, unspecified; F11.23 Opioid dependence with withdrawal; F13.239 Sedative, hypnotic or anxiolytic dependence with withdrawal, unspecified; F12.90 Cannabis use, unspecified, uncomplicated; I10 Essential (primary) hypertension; F41.9 Anxiety disorder, unspecified; Z91.19 Patient's noncompliance with other medical treatment and regimen; J45.909 Unspecified asthma, uncomplicated; F17.210 Nicotine dependence, cigarettes, uncomplicated